=== PATIENT | female | born 1990 | race Caucasian/White ===

== ENCOUNTER 2024-10-27 15:26 | Inpatient (IN) | payer OTHER, SELFPAY ==
[2024-10-27] VITALS (66 sets, daily range): BP systolic 94–161; BP diastolic 51–99; PULSE 96–117; RESP 8–25; TEMP 36.8–37.9; O2SAT 86–100
--- NOTE | 2024-10-27 15:41 | ED.GENADUL_ITS ---
Discharge Plan Disposition Patient Disposition: Admit to [facility] Condition: Stable Discharge Details Clinical Impression: Emphysematous cystitis, Hyperglycemia, Hypomagnesemia, Sepsis Primary Care Provider: Unknown,Unknown ED Provider: Olivier Thompson Home Meds and New Rx's Prescriptions: No Action insulin lispro 100 unit/mL insulin pen 1 sliding scale dose subcut USEASDIRECTD insulin degludec [Tresiba FlexTouch U-100] 100 unit/mL (3 mL) insulin pen 40 unit subcut DAILY fluoxetine [Prozac] 40 mg capsule 40 mg PO DAILY levothyroxine [Synthroid] 125 mcg tablet 125 mcg PO DAILY hydrocortisone 10 mg tablet 15 mg PO .am hydrocortisone 5 mg tablet 5 mg PO .pm fludrocortisone 0.1 mg tablet 0.1 mg PO DAILY HPI General Date/Time Provider Initiated Documentation: 10/27/24 15:41 . HPI Narrative: 34 year-old female, t1DM, presents to ED today by EMS with a chief complaint of nausea/vomiting since 0800 this morning, stabbing umbilical pain, unable to keep fluids down- BGL reading high at-home took 10 units lispro subQ prior to arrival at 1500. Quality described as intractable nausea/vomiting, no radiation to overt fever, is sweating, denies shortness of breath, denies respiratory illness, denies altered mentation, endorses some diarrhea, denies chest pain, denies syncope. Severity is described as 8/10. Palliating factors include no antiemetics attempted. Provoking factors include nothing specific. Events leading up to the incident/Associated Symptoms: Patient has been in DKA prior, feels similar. Patient not anticoagulated. Related Data Home Medications ?Medication ?Instructions ?Recorded ?Confirmed fludrocortisone 0.1 mg tablet 0.1 mg PO DAILY 10/27/24 10/27/24 fluoxetine 40 mg capsule (Prozac) 40 mg PO DAILY 10/27/24 10/27/24 hydrocortisone 10 mg tablet 15 mg PO .am 10/27/24 10/27/24 hydrocortisone 5 mg tablet 5 mg PO .pm 10/27/24 10/27/24 insulin degludec 100 unit/mL (3 40 unit subcut DAILY 10/27/24 10/27/24 mL) subcutaneous pen (Tresiba FlexTouch U-100 insulin) insulin lispro 100 unit/mL 1 sliding scale dose subcut 10/27/24 10/27/24 subcutaneous pen USEASDIRECTD levothyroxine 125 mcg tablet 125 mcg PO DAILY 10/27/24 10/27/24 (Synthroid) Allergies Allergy/AdvReac Type Severity Reaction Status Date / Time shellfish derived Allergy Intermediate Skin Rash Verified 10/27/24 15:43 General Stated Complaint: Abd Prob ELAN: 3 Review of Systems All systems reviewed & are unremarkable except as noted in HPI and below Exam Narrative Exam Narrative: GENERAL APPEARANCE: Well-nourished, non-toxic, awake and alert, atraumatic, no acute distress. SKIN: Warm, pink, dry, intact, without rashes/lesions/ulcerations. HEAD: Normocephalic, atraumatic, normal hair distribution for gender/age. EYES: Normal conjunctiva, no exudates on lids/lashes. ENT: Nares patent, no circumoral cyanosis, no facial swelling NECK: Supple, trachea midline, painless cervical ROM. LUNGS/CHEST: Lungs CTA bilaterally- no rhonchi/rales/wheezes diffusely, non- labored respirations, normal A/P diameter, symmetrical expansion, no chest wall deformity HEART (CV/PV): Regular rate and rhythm without murmur, no peripheral edema, no JVD. ABDOMEN: Soft, non-distended, no guarding, sharp epigastric tenderness, RUQ tenderness, no McBurney's point tenderness, no CVA tenderness to percussion bilaterally. MSK: Normal ROM, no swelling/deformity to bilateral UEs or LEs, moving all extremities without weakness, no cyanosis, spine midline without tenderness, normal curvature. NEURO: Mental Status AAOx4 - alert to person, place, time, events No facial droop, no forehead involvement. Motor: No focal weakness - strength 5/5 in bilateral UEs and LEs, proximal and distal, symmetric. Sensory: sensation intact to light touch globally. Gait normal: patient ambulated without ataxia into ED room. PSYCH: euthymic, cooperative, pleasant, appropriate speech Course Vital Signs Vital signs: Vital Signs Temperature 37.4 C 10/27/24 15:33 Pulse 103 H 10/27/24 15:33 Respiratory Rate 25 H 10/27/24 15:33 Blood Pressure 137/90 10/27/24 15:33 Pulse Oximetry 100 10/27/24 15:33 Temperature 37.4 C 10/27/24 15:33 Pulse 103 H 10/27/24 15:33 Respiratory Rate 25 H 10/27/24 15:33 Blood Pressure 137/90 10/27/24 15:33 Blood Pressure Position Supine 10/27/24 15:33 Pulse Oximetry 100 10/27/24 15:33 Oxygen Delivery Method Room Air 10/27/24 15:33 Oxygen Flow Rate 0 10/27/24 15:33 Pain Level 8 10/27/24 15:33 Medical Decision Making This dictation utilizes [id number] dictation software and may contain unedited grammatical errors. 34 year-old female, t1DM, presents to ED today by EMS with a chief complaint of nausea/vomiting since 0800 this morning, stabbing umbilical pain, unable to keep fluids down- BGL reading high at-home took 10 units lispro subQ prior to arrival at 1500. Quality described as intractable nausea/vomiting, no radiation to overt fever, is sweating, denies shortness of breath, denies respiratory illness, denies altered mentation, endorses some diarrhea, denies chest pain, denies syncope. Severity is described as 8/10. Palliating factors include no antiemetics attempted. Provoking factors include nothing specific. Events leading up to the incident/Associated Symptoms: Patient has been in DKA prior, feels similar. Patients' medical history: Gunnison's disease, type 1 diabetes, hypothyroidism, depression, irritable bowel syndrome. Family and social history: lives at home, no recent travel sick. Pertinent exam findings / vital signs include epigastric tenderness, lungs CTA, tachycardic, afebrile, appears toxic. Differential / pathologies of concern include diabetic ketoacidosis, gastroenteritis, biliary tree pathology, UTI, pneumonia, SBO, gastritis, sepsis, electrolyte abnormality, addisonian crisis. Diagnostic studies of: -CBC, CMP, VBG, magnesium, lipase, UA, urine culture, lactate, CT ABD/pelvis with contrast, XR chest, EKG. -CBC shows leukocytosis of 11.6 -Initial lactate 3.7, repeat 1.6 -VBG has a pH of 7.41 with low pCO2-likely metabolic alkalosis with low bicarb and total CO2 -CMP shows an anion gap of 20.2, creatinine of 1.2, glucose of 387, low magnesium at 1.5, mildly elevated bilirubin at 1.89, elevated alk phos at 231, repeat BMP shows a glucose of 74 and was given an amp of D50, gap is closed -Lipase negative -UA shows ketonuria and glucose spilling -CT shows air in the bladder, likely emphysematous cystitis in the setting of chronic diabetes, high risk infection -XR chest shows no pneumonia -EKG shows sinus tachycardia with a rate at 101, normal intervals, P waves followed by narrow complex QRS, left axis deviation, mild ST depressions in V45 and 6 without reciprocal changes, no T wave inversions, normal Q TC Interventions of: -2L NS IVF, 1gm IV ceftriaxone for emphysematous cystitis, 100mg hydrocortisone for elias's empiric treatment, given IV reglan & benadryl for nausea/vomiting in the setting of chronic gastroparesis, given magnesium 2gm IV for hypo-mag, Given 1amp D50 for repeat glucose of 74. ED Course/Assessment/Plan: 34-year-old toxic appearing female presents with many episodes of vomiting today, reports some diarrhea, reports severe abdominal pain and feels like she is in DKA with her blood glucose reading high at home, she gave herself 10 units of subcu lispro prior to arrival, glucose on arrival is 387. I did provide IV fluids to dilute the patient, she did have an initial anion gap of 20 without acidosis on VBG, she has leukocytosis with air in the bladder without catheterization suspicious for high risk emphysematous cystitis, she had persistent elevated lactate on repeat and was admitted for sepsis with emphysematous cystitis, I did normalize her anion gap with IV fluids, her glucose to go down to 74 but was given an amp of D50, she had mildly low magnesium that was repleted, I consulted with Dr. Landry who accepted the patient for admission around 2029, patient had already received IV ceftriaxone for empiric UTI coverage. Disposition of Emphysematous cystitis, sepsis, hyperglycemia, hypomagnesemia. Patient verbalized understanding of the plan and return to ED criteria and engaged in shared decision making. Medical Records Medical records reviewed: Yes I reviewed the patient's medical records. Imaging Data Radiologic Study: Attestation: I personally reviewed and interpreted this imaging study as follows: Imaging: CT Scan Radiologist's impression: EXAM: CT ABDOMEN PELVIS W CLINICAL HISTORY: epigastric/RUQ/LUQ tenderness intractable vomit. TECHNIQUE: Imaging Protocol: Axial computed tomography images with coronal and sagittal reformatted images were created and reviewed CONTRAST MATERIAL: Intravenous: Omnipaque 350 Contrast volume:70 ml Oral: no COMPARISON: No exams were available for comparison FINDINGS: ABDOMEN and PELVIS: Lung Bases: No acute findings. Liver: Normal density. No suspicious mass. Gallbladder and biliary tract: No radiodense calculus. No wall thickening or pericholecystic fluid. No biliary dilation. Pancreas: Normal density. No abnormal calcifications or inflammatory process. No evidence of mass. Spleen: Normal. Kidneys: Normal size, contour and axis. No radiodense stones. No obstructive uropathy. No suspicious masses seen. Adrenal glands: No masses seen. Vasculature: Abdominal aorta non-dilated. Soft tissues: Unremarkable. Bladder: Air in urinary bladder. Screw secondary to catheterization. Clinical correlation recommended. No gross wall thickening. No calculi.No focal mass. Bowel: The stomach is unremarkable. No small-bowel obstruction. No bowel wall thickening. Appendix normal. Normal quantity of stool. Peritoneal cavity: No ascites. No focal collection. No mesenteric inflammatory response. No free air. Bones: Unremarkable for age. Reproductive organs: Unremarkable. Lymph nodes: No pathologically enlarged lymph nodes. IMPRESSION:: No acute abnormality in the abdomen or pelvis. Air in urinary bladder which may be secondary to recent catheterization. No bladder wall thickening or stones. The gallbladder and appendix appear normal. Radiologic Study #2: Attestation: I personally reviewed and interpreted this imaging study as follows: Imaging: X-Ray Radiologist's impression: Exam: XR Chest Exam date and time: 10/27/2024 7:04 PM Age: 34 years old Clinical indication: Patient HX: Laceration on hand between thumb and first digit TECHNIQUE: Imaging protocol: Radiologic exam of the chest. Views: 2 views. COMPARISON: CT ABDOMEN PELVIS W 10/27/2024 5:33 PM FINDINGS: Lungs: Unremarkable. No consolidation. Pleural spaces: Unremarkable. No pleural effusion. No pneumothorax. Heart/Mediastinum: Unremarkable. No cardiomegaly. Bones/joints: Unremarkable. IMPRESSION: No evidence for acute abnormality in the chest. Dictated and Authenticated by: Jessica Dawson MD. Lab Data Lab results reviewed: Yes I reviewed the patient's lab results. Labs: 10/27/24 17:52 Urine - Reflex from Ua Urine Culture - Pending Laboratory Tests Range/Units 10/27/24 10/27/24 10/27/24 16:06 17:52 18:55 WBC (4.4-10.8) 10^3/uL 11.67 H RBC (3.93-5.22) 10^6/uL 5.68 H Hgb (11.2-15.7) g/dL 14.2 Hct (36.0-46.0) % 43.9 MCV (80-95) fL 77 L MCH (27.0-33.0) pg 25.0 L MCHC (32.0-36.0) % 32.3 RDW (11.7-14.6) % 13.7 Plt Count (130-400) 10^3/uL 267 MPV (8.0-11.0) fL 11.2 H Immature Gran % % 0.3 Neutrophils % % 63.1 Lymphocytes % % 22.2 Monocytes % % 6.1 Eosinophils % % 7.4 Basophils % % 0.9 Nucleated RBC % (0.0-0.3) % 0.0 Absolute Neutrophils (1.2-6.7) 10^3/uL 7.36 H Absolute Lymphocytes (1.2-3.4) 10^3/uL 2.59 Absolute Monocytes (0.1-0.8) 10^3/uL 0.71 Absolute Eosinophils (0.0-0.7) 10^3/uL 0.86 H Absolute Basophils (0.0-0.2) 10^3/uL 0.11 VBG pH (7.31-7.41) 7.41 VBG pCO2 (41-51) mmHg 30 L VBG pO2 mmHg 31 VBG HCO3 (23-28) mmol/L 19 L VBG Total CO2 (24-29) mmol/L 17 L VBG O2 Saturation % 59 VBG Base Excess (-2-3) mmol/L -6 L VBG Lactate (0.6-1.4) mmol/L 3.7 H* Sodium (136-145) mmol/L 136 140 Potassium (3.5-5.1) mmol/L 3.9 3.8 Chloride (98-107) mmol/L 97 L 104 Carbon Dioxide (21.0-32.0) mmol/L 18.8 L 25.6 Anion Gap (3-11) mmol/L 20.2 H 10.4 BUN (7-18) mg/dL 8 7 Creatinine (0.55-1.02) mg/dL 1.2 H 1.0 Est GFR (CKD-EPI 2020) (mL/min/1.73m2) 61.30 76.29 Glucose (74-106) mg/dL 387 H 74 Calcium (8.5-10.1) mg/dL 9.4 9.2 Magnesium (1.8-2.4) mg/dL 1.5 L Total Bilirubin (0.2-1.0) mg/dL 1.89 H AST (15-37) U/L 25 ALT (14-59) U/L 33 Alkaline Phosphatase (46-116) U/L 231 H Total Protein (6.4-8.2) g/dL 7.7 Albumin (3.4-5.0) g/dL 3.4 Lipase (<78) U/L 9 Urine Color (Yellow) Yellow Urine Clarity (Clear) Clear Urine pH (5-8) 6.0 Ur Specific Compton (1.005-1.025) 1.010 Urine Protein (Neg-Trace) mg/dL Negative Urine Ketones (Negative) mg/dL 80 H Urine Blood (Negative) Small H Urine Nitrite (Negative) Negative Urine Bilirubin (Negative) Small H Urine Urobilinogen (Up to 0.2) mg/dL 0.2 Ur Leukocyte Esterase (Negative) Moderate H Urine RBC (0-2) HPF 3-5 H Urine WBC (0-5) HPF >50 H Ur Epithelial Cells (Negative) HPF Few Urine Crystals (Negative) HPF Negative Urine Bacteria (Negative) HPF Few Urine Casts (Negative) LPF Negative Urine Mucus (Negative) Negative Urine Other (Negative) Rare Transitional Ur Culture Indicated? Yes Urine Glucose (Negative) mg/dL 500 H Range/Units 10/27/24 20:20 WBC (4.4-10.8) 10^3/uL RBC (3.93-5.22) 10^6/uL Hgb (11.2-15.7) g/dL Hct (36.0-46.0) % MCV (80-95) fL MCH (27.0-33.0) pg MCHC (32.0-36.0) % RDW (11.7-14.6) % Plt Count (130-400) 10^3/uL MPV (8.0-11.0) fL Immature Gran % % Neutrophils % % Lymphocytes % % Monocytes % % Eosinophils % % Basophils % % Nucleated RBC % (0.0-0.3) % Absolute Neutrophils (1.2-6.7) 10^3/uL Absolute Lymphocytes (1.2-3.4) 10^3/uL Absolute Monocytes (0.1-0.8) 10^3/uL Absolute Eosinophils (0.0-0.7) 10^3/uL Absolute Basophils (0.0-0.2) 10^3/uL VBG pH (7.31-7.41) VBG pCO2 (41-51) mmHg VBG pO2 mmHg VBG HCO3 (23-28) mmol/L VBG Total CO2 (24-29) mmol/L VBG O2 Saturation % VBG Base Excess (-2-3) mmol/L VBG Lactate (0.6-1.4) mmol/L 1.6 H Sodium (136-145) mmol/L Potassium (3.5-5.1) mmol/L Chloride (98-107) mmol/L Carbon Dioxide (21.0-32.0) mmol/L Anion Gap (3-11) mmol/L BUN (7-18) mg/dL Creatinine (0.55-1.02) mg/dL Est GFR (CKD-EPI 2020) (mL/min/1.73m2) Glucose (74-106) mg/dL Calcium (8.5-10.1) mg/dL Magnesium (1.8-2.4) mg/dL Total Bilirubin (0.2-1.0) mg/dL AST (15-37) U/L ALT (14-59) U/L Alkaline Phosphatase (46-116) U/L Total Protein (6.4-8.2) g/dL Albumin (3.4-5.0) g/dL Lipase (<78) U/L Urine Color (Yellow) Urine Clarity (Clear) Urine pH (5-8) Ur Specific Compton (1.005-1.025) Urine Protein (Neg-Trace) mg/dL Urine Ketones (Negative) mg/dL Urine Blood (Negative) Urine Nitrite (Negative) Urine Bilirubin (Negative) Urine Urobilinogen (Up to 0.2) mg/dL Ur Leukocyte Esterase (Negative) Urine RBC (0-2) HPF Urine WBC (0-5) HPF Ur Epithelial Cells (Negative) HPF Urine Crystals (Negative) HPF Urine Bacteria (Negative) HPF Urine Casts (Negative) LPF Urine Mucus (Negative) Urine Other (Negative) Ur Culture Indicated? Urine Glucose (Negative) mg/dL Quality:SDOH Health Related Social Needs: No Data to Display PFSH All Active Problems (Updated 10/27/24 @ 21:03 by BRENDEN Streeter) Sepsis (Acute) UTI (urinary tract infection) (Acute) Hypomagnesemia (Acute) Hyperglycemia (Acute) Emphysematous cystitis (Acute) Social History Smoking/Tobacco Use Status: Never Smoking risk assessment performed?: Yes Alcohol Intake: never Drug use: Never Housing: house
--- NOTE | 2024-10-27 15:45 | RT.EKG_ITS ---
APPROVED REPORT Exam: Resting ECG Reason for Exam: vomiting, t2DM Patient Location: E HR:101 bpm ECG Measurements Heart Rate 101 AXIS AL 133 P 47 QRSd 94 QRS -52 QT 431 T 35 QTc 558 Conclusion Sinus tachycardia. 101 normal axis no stemi long QTC 558
[2024-10-27 16:11] LABS: Abs Immature Grans 0.04 10^3/uL (0.0-0.06); Absolute Eosinophil Count 0.86 10^3/uL (0.0-0.7); Absolute Lymphocyte Count 2.59 10^3/uL (1.2-3.4); Absolute Monocyte Count 0.71 10^3/uL (0.1-0.8); BE (Venous) -6 mmol/L (-2-3); Basophils % 0.9 %; Eosinophils % 7.4 %; HCO3 (Venous) 19 mmol/L (23-28); HCT 43.9 % (36.0-46.0); HGB 14.2 g/dL (11.2-15.7); Immature Grans % 0.3 %; Lymphocytes % 22.2 %; MCHC 32.3 % (32.0-36.0); MCV 77 fL (80-95); MPV 11.2 fL (8.0-11.0); Monocytes % 6.1 %; Neutrophils % 63.1 %; O2 Sat (Venous) 59 %; Platelet Count 267 10^3/uL (130-400); RBC 5.68 10^6/uL (3.93-5.22); RDW 13.7 % (11.7-14.6); RDW-SD 38.3 fL; TCO2 (Venous) 17 mmol/L (24-29); WBC 11.67 10^3/uL (4.4-10.8); pCO2 (Venous) 30 mmHg (41-51); pH (Venous) 7.41 (7.31-7.41); pO2 (Venous) 31 mmHg
[2024-10-27 16:12] LABS: Lactate 3.7 mmol/L (0.6-1.4)
[2024-10-27 16:13] LABS: Absolute Basophil Count 0.11 10^3/uL (0.0-0.2); Absolute Neutrophil Count 7.36 10^3/uL (1.2-6.7)
[2024-10-27] MEDS: Normal Saline 1,000 ML 1000 ML IV ×2 (16:15→18:53)
[2024-10-27] MEDS: diphenhydrAMINE 50 MG/ML VIAL 25 MG IVP (16:16)
[2024-10-27] MEDS: Metoclopramide 10 MG/2 ML VIAL IVP (16:18)
[2024-10-27 16:38] LABS: ALT 33 U/L (14-59); AST 25 U/L (15-37); Albumin 3.4 g/dL (3.4-5.0); Alkaline Phosphatase 231 U/L (46-116); Anion Gap 20.2 mmol/L (3-11); BUN 8 mg/dL (7-18); Bilirubin, Total 1.89 mg/dL (0.2-1.0); CO2 18.8 mmol/L (21.0-32.0); CREATININE 1.2 mg/dL (0.55-1.02); Calcium 9.4 mg/dL (8.5-10.1); Chloride 97 mmol/L (98-107); Glucose 387 mg/dL (74-106); Lipase 9 U/L (<78); Magnesium 1.5 mg/dL (1.8-2.4); Potassium 3.9 mmol/L (3.5-5.1); Sodium 136 mmol/L (136-145); Total Protein 7.7 g/dL (6.4-8.2)
[2024-10-27] MEDS: Normal Saline - Diluent 50 ML VIAL IJ (17:36)
[2024-10-27] MEDS: Omnipaque 350 MG/ML 100 ML BTL 75 ML IJ (17:42)
--- NOTE | 2024-10-27 17:43 | DI.CT_ITS ---
Exam(s) CT ABDOMEN PELVIS W EXAM: CT ABDOMEN PELVIS W CLINICAL HISTORY: epigastric/RUQ/LUQ tenderness intractable vomit. TECHNIQUE: Imaging Protocol: Axial computed tomography images with coronal and sagittal reformatted images were created and reviewed CONTRAST MATERIAL: Intravenous: Omnipaque 350 Contrast volume:70 ml Oral: no COMPARISON: No exams were available for comparison FINDINGS: ABDOMEN and PELVIS: Lung Bases: No acute findings. Liver: Normal density. No suspicious mass. Gallbladder and biliary tract: No radiodense calculus. No wall thickening or pericholecystic fluid. No biliary dilation. Pancreas: Normal density. No abnormal calcifications or inflammatory process. No evidence of mass. Spleen: Normal. Kidneys: Normal size, contour and axis. No radiodense stones. No obstructive uropathy. No suspicious masses seen. Adrenal glands: No masses seen. Vasculature: Abdominal aorta non-dilated. Soft tissues: Unremarkable. Bladder: Air in urinary bladder. Screw secondary to catheterization. Clinical correlation recommend ed. No gross wall thickening. No calculi.No focal mass. Bowel: The stomach is unremarkable. No small-bowel obstruction. No bowel wall thickening. Appendix normal. Normal quantity of stool. Peritoneal cavity: No ascites. No focal collection. No mesenteric inflammatory response. No free air . Bones: Unremarkable for age. Reproductive organs: Unremarkable. Lymph nodes: No pathologically enlarged lymph nodes. IMPRESSION:: No acute abnormality in the abdomen or pelvis. Air in urinary bladder which may be secondary to recent catheterization. No bladder wall thickening or stones. The gallbladder and appendix appear normal. RADIATION DOSE DELIVERED: Total DLP DATA REPOSITORY: All CT scans at this facility are submitted to the National Radiology Data Registry (NRDR) Dose Index Registry (DIR) with the [employer] (A[employer]). RADIATION OPTIMIZATION: All CT scans at this facility use at least one of these dose optimization te chniques: automated exposure control; mA and/or kV adjustment per patient size (includes targeted exa ms where dose is matched to clinical indication); or iterative reconstruction.
[2024-10-27] MEDS: MAGNESIUM SULFATE 2 GM/50 ML BAG IV_INF (17:59)
--- NOTE | 2024-10-27 18:00 | DI.RAD_ITS ---
Exam(s) XR CHEST 2V PA LATERAL EXAM: XR CHEST 2V PA LATERAL CLINICAL HISTORY: cough, upper ABD pain. TECHNIQUE: 2D digital imaging was performed. COMPARISON: No exams were available for comparison FINDINGS: 2 views: Heart size is normal. The mediastinum is not widened. Lungs are clear. No infiltrates nor pleural effusions. IMPRESSION: No acute pulmonary findings. DATA REPOSITORY: RADIATION DOSE DELIVERED:
[2024-10-27 18:02] LABS: Bilirubin Small (Negative); Blood Small (Negative); Clarity Clear (Clear); Glucose 500 mg/dL (Negative); Ketones 80 mg/dL (Negative); Leukocyte Esterase Moderate (Negative); Nitrite Negative (Negative); Urobilinogen 0.2 mg/dL (Up to 0.2)
[2024-10-27 18:17] LABS: Bacteria Few HPF (Negative); C & S Indicated? Yes; Casts Negative LPF (Negative); Crystals Negative HPF (Negative); Epithelial Cells Few HPF (Negative); Mucus Negative (Negative); Other Cells Rare Transitional (Negative); WBC >50 HPF (0-5)
[2024-10-27] MEDS: Dextrose 50%-Water 25 GM/50 ML SYR IVP (19:14)
[2024-10-27 19:15] LABS: Anion Gap 10.4 mmol/L (3-11); BUN 7 mg/dL (7-18); CO2 25.6 mmol/L (21.0-32.0); Calcium 9.2 mg/dL (8.5-10.1); Chloride 104 mmol/L (98-107); Estimated GFR 76.29 (mL/min/1.73m2); Glucose 74 mg/dL (74-106); Potassium 3.8 mmol/L (3.5-5.1); Sodium 140 mmol/L (136-145)
[2024-10-27] MEDS: cefTRIAXone 1 GM/50 ML BAG IVPB (19:16)
--- NOTE | 2024-10-27 20:07 | DI.VRAD_ITS ---
PROCEDURE INFORMATION: Exam: XR Chest Exam date and time: 10/27/2024 7:04 PM Age: 34 years old Clinical indication: Patient HX: Laceration on hand between thumb and first digit TECHNIQUE: Imaging protocol: Radiologic exam of the chest. Views: 2 views. COMPARISON: CT ABDOMEN PELVIS W 10/27/2024 5:33 PM FINDINGS: Lungs: Unremarkable. No consolidation. Pleural spaces: Unremarkable. No pleural effusion. No pneumothorax. Heart/Mediastinum: Unremarkable. No cardiomegaly. Bones/joints: Unremarkable. IMPRESSION: No evidence for acute abnormality in the chest. Dictated and Authenticated by: Jessica Dawson MD. Ordering:MONICA Aguayo MD
[2024-10-27] MEDS: Hydrocortisone SOD SUC. 100 MG VIAL IVP (20:17)
--- NOTE | 2024-10-27 20:19 | HPE_ITS ---
Date of service: 10/27/24 Time of Service: 20:19 Assessment and Plan Assessment and plan (1) UTI (urinary tract infection): Status: Acute Assessment and plan: UTI (the air in bladder may represent emphysematous cystitis). The initial presentation suggested possible impending DKA but the rapid normalization of parameters indicates otherwise, or at least that this has been averted. Unclear what the initial lactic acidosis may have represented but this too has resolved. In the meantime the presentation (vomiting) may be simply a non-specific manifestation of UTI, though adrenal insufficiency may have likewise been playing a role. Will continue antibiotics, await urine culture, continue stress dose steroids and continue basal insulin (at 2/3 dose until PO stabilizes) along with SS coverage. 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 No abd pain, single small episode of diarrhea. No similar illness at home. Took her usual 40 unit long acting insulin this morning. En route to ER noted a high reading and took additional 10 units of Lispro. In ER initial findings of note for white count 11, 387, HCO3 18, AG 20, lactate 3.7, ketonuria and glucose 387; Mg 1.5. Given 2 L IVF and repeat labs show sugar 74 (given D50), lactate 1.6, HCO3 25, AG 10. Urinalysis shows >50 WBC/hpf and CT generally unremarkbale save for air in bladder (NB: not a cath urine). Patient given Reglan, benadryl, 100 mg Hydrocortisone and 1 gram Rocephin. I was asked to evaluate for admission. Patient states she is feeling noticeably better. Denies urinary frequency or dysuria, and no back pain. Review of Systems Narrative: per HPI PFSH All Active Problems (Updated 10/27/24 @ 20:37 by Michael Landry MD) UTI (urinary tract infection) (Acute) Hypomagnesemia (Acute) Lactic acidosis (Acute) Hyperglycemia (Acute) Emphysematous cystitis (Acute) Social History Smoking/Tobacco Use Status: Never Smoking risk assessment performed?: Yes Alcohol Intake: never Drug use: Never Housing: house Meds Allergies and Home Medications Allergies Allergy/AdvReac Type Severity Reaction Status Date / Time shellfish derived Allergy Intermediate Skin Rash Verified 10/27/24 15:43 Home Medications ?Medication ?Instructions ?Recorded ?Confirmed ?Type fludrocortisone 0.1 mg tablet 0.1 mg PO DAILY 10/27/24 10/27/24 History fluoxetine 40 mg capsule (Prozac) 40 mg PO DAILY 10/27/24 10/27/24 History hydrocortisone 10 mg tablet 15 mg PO .am 10/27/24 10/27/24 History hydrocortisone 5 mg tablet 5 mg PO .pm 10/27/24 10/27/24 History insulin degludec 100 unit/mL (3 40 unit subcut DAILY 10/27/24 10/27/24 History mL) subcutaneous pen (Tresiba FlexTouch U-100 insulin) insulin lispro 100 unit/mL 1 sliding scale dose subcut 10/27/24 10/27/24 History subcutaneous pen USEASDIRECTD levothyroxine 125 mcg tablet 125 mcg PO DAILY 10/27/24 10/27/24 History (Synthroid) Exam Narrative Exam Narrative: 122/75, 101, 37.4, 15, 99% RA. HEENT atraumatic; neck supple; lungs clear; heart RRR; abdomen soft and NT; extremities w/o edema; neuro Ox3, lucid, moves all4s Results Labs 10/27/24 16:06 10/27/24 18:55 Labs: Laboratory Results - last 24 hr 10/27/24 10/27/24 10/27/24 16:06 17:52 18:55 WBC 11.67 H RBC 5.68 H Hgb 14.2 Hct 43.9 MCV 77 L MCH 25.0 L MCHC 32.3 RDW 13.7 Plt Count 267 MPV 11.2 H Immature Gran % 0.3 Neutrophils % 63.1 Lymphocytes % 22.2 Monocytes % 6.1 Eosinophils % 7.4 Basophils % 0.9 Nucleated RBC % 0.0 Absolute Neutrophils 7.36 H Absolute Lymphocytes 2.59 Absolute Monocytes 0.71 Absolute Eosinophils 0.86 H Absolute Basophils 0.11 VBG pH 7.41 VBG pCO2 30 L VBG pO2 31 VBG HCO3 19 L VBG Total CO2 17 L VBG O2 Saturation 59 VBG Base Excess -6 L VBG Lactate 3.7 H* Sodium 136 140 Potassium 3.9 3.8 Chloride 97 L 104 Carbon Dioxide 18.8 L 25.6 Anion Gap 20.2 H 10.4 BUN 8 7 Creatinine 1.2 H 1.0 Est GFR (CKD-EPI 2020) 61.30 76.29 Glucose 387 H 74 Calcium 9.4 9.2 Magnesium 1.5 L Total Bilirubin 1.89 H AST 25 ALT 33 Alkaline Phosphatase 231 H Total Protein 7.7 Albumin 3.4 Lipase 9 Urine Color Yellow Urine Clarity Clear Urine pH 6.0 Ur Specific [place] 1.010 Urine Protein Negative Urine Ketones 80 H Urine Blood Small H Urine Nitrite Negative Urine Bilirubin Small H Urine Urobilinogen 0.2 Ur Leukocyte Esterase Moderate H Urine RBC 3-5 H Urine WBC >50 H Ur Epithelial Cells Few Urine Crystals Negative Urine Bacteria Few Urine Casts Negative Urine Mucus Negative Urine Other Rare Transitional Ur Culture Indicated? Yes Urine Glucose 500 H Last Vital Signs Temp 37.4 C 10/27/24 15:33 Pulse 101 H 10/27/24 20:15 Resp 15 10/27/24 20:15 BP 122/75 10/27/24 20:15 Pulse Ox 99 10/27/24 20:10 Time Spent Time spent with Patient: 55-74 minutes Time was spent: preparing to see the patient(eg.review tests), obtaining and/or reviewing separately otained hiistory, ordering medications,tests, procedures, referring, communicating with other health wound care specialist and indepentently interpreting results
[2024-10-27 20:22] LABS: Lactate 1.6 mmol/L (0.6-1.4)
--- NOTE | 2024-10-27 22:24 | W.PC.ACHO ---
Registration Status: Primary Language: Preferred Language: ED Information & Data Chief Complaint Abd Prob 10/27/24 15:41 Other Complaint Diabetes 10/27/24 15:33 Triage Note Pt has addisons and T1DM. 10/27/24 15:33 Has been vomiting since 0800 tis morning, some diarrhea. Unable to keep fluids down. BGL read high this morning. 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 Has not eaten, current BGL 385. Complains of umbilical pain, 8/10 stabbing. Most Recent Vital Signs Temperature 37.4 C 10/27/24 15:33 Pulse 101 H 10/27/24 20:15 Pulse 109 H 10/27/24 20:15 Respiratory Rate 15 10/27/24 20:15 Blood Pressure 122/75 10/27/24 20:15 Blood Pressure Mean 89 10/27/24 20:15 Blood Pressure Position Supine 10/27/24 15:33 Pulse Oximetry 99 10/27/24 20:10 Oxygen Delivery Method Room Air 10/27/24 15:33 Oxygen Flow Rate 0 10/27/24 15:33 Pain Level 8 10/27/24 15:40 Allergies shellfish derived Allergy (Intermediate, Verified 10/27/24 15:43) Skin Rash Active Medications Generic Name Dose Route Start Last Admin Trade Name Freq PRN Reason Stop Dose Admin Iohexol 75 ml 10/27/24 17:45 10/27/24 17:42 Omnipaque 350 Mg/Ml 100 Ml Btl IJ 11/26/24 23:59 75 ml DIRECTED DEE Administration Sodium Chloride 50 ml 10/27/24 17:45 10/27/24 17:36 Normal Saline - Diluent 50 Ml Vial IJ 50 ml .FOR DI USE DEE Administration IV IV Catheter Type [Left Peripheral IV Antecubital] IV Catheter Gauge [Left 18 Antecubital] Diet Orders Category Date Time Status Diabetes Consistent CHO [DIET] Nutrition 10/28/24 Breakfast Ordered Diagnostics 10/27/24 10/27/24 10/27/24 Range/Units 20:20 18:55 17:52 WBC (4.4-10.8) 10^3/uL RBC (3.93-5.22) 10^6/uL Hgb (11.2-15.7) g/dL Hct (36.0-46.0) % MCV (80-95) fL MCH (27.0-33.0) pg MCHC (32.0-36.0) % RDW (11.7-14.6) % Plt Count (130-400) 10^3/uL MPV (8.0-11.0) fL Immature Gran % % Neutrophils % % Lymphocytes % % Monocytes % % Eosinophils % % Basophils % % Nucleated RBC % (0.0-0.3) % Absolute Neutrophils (1.2-6.7) 10^3/uL Absolute Lymphocytes (1.2-3.4) 10^3/uL Absolute Monocytes (0.1-0.8) 10^3/uL Absolute Eosinophils (0.0-0.7) 10^3/uL Absolute Basophils (0.0-0.2) 10^3/uL VBG pH (7.31-7.41) VBG pCO2 (41-51) mmHg VBG pO2 mmHg VBG HCO3 (23-28) mmol/L VBG Total CO2 (24-29) mmol/L VBG O2 Saturation % VBG Base Excess (-2-3) mmol/L VBG Lactate 1.6 H (0.6-1.4) mmol/L Sodium 140 (136-145) mmol/L Potassium 3.8 (3.5-5.1) mmol/L Chloride 104 (98-107) mmol/L Carbon Dioxide 25.6 (21.0-32.0) mmol/L Anion Gap 10.4 (3-11) mmol/L BUN 7 (7-18) mg/dL Creatinine 1.0 (0.55-1.02) mg/dL Est GFR (CKD-EPI 2020) 76.29 (mL/min/1.73m2) Glucose 74 (74-106) mg/dL Calcium 9.2 (8.5-10.1) mg/dL Magnesium (1.8-2.4) mg/dL Total Bilirubin (0.2-1.0) mg/dL AST (15-37) U/L ALT (14-59) U/L Alkaline Phosphatase (46-116) U/L Total Protein (6.4-8.2) g/dL Albumin (3.4-5.0) g/dL Lipase (<78) U/L Cortisol Urine Color Yellow (Yellow) Urine Clarity Clear (Clear) Urine pH 6.0 (5-8) Ur Specific [place] 1.010 (1.005-1.025) Urine Protein Negative (Neg-Trace) mg/dL Urine Ketones 80 H (Negative) mg/dL Urine Blood Small H (Negative) Urine Nitrite Negative (Negative) Urine Bilirubin Small H (Negative) Urine Urobilinogen 0.2 (Up to 0.2) mg/dL Ur Leukocyte Esterase Moderate H (Negative) Urine RBC 3-5 H (0-2) HPF Urine WBC >50 H (0-5) HPF Ur Epithelial Cells Few (Negative) HPF Urine Crystals Negative (Negative) HPF Urine Bacteria Few (Negative) HPF Urine Casts Negative (Negative) LPF Urine Mucus Negative (Negative) Urine Other Rare Transitional (Negative) Ur Culture Indicated? Yes Urine Glucose 500 H (Negative) mg/dL 10/27/24 Range/Units 16:06 WBC 11.67 H (4.4-10.8) 10^3/uL RBC 5.68 H (3.93-5.22) 10^6/uL Hgb 14.2 (11.2-15.7) g/dL Hct 43.9 (36.0-46.0) % MCV 77 L (80-95) fL MCH 25.0 L (27.0-33.0) pg MCHC 32.3 (32.0-36.0) % RDW 13.7 (11.7-14.6) % Plt Count 267 (130-400) 10^3/uL MPV 11.2 H (8.0-11.0) fL Immature Gran % 0.3 % Neutrophils % 63.1 % Lymphocytes % 22.2 % Monocytes % 6.1 % Eosinophils % 7.4 % Basophils % 0.9 % Nucleated RBC % 0.0 (0.0-0.3) % Absolute Neutrophils 7.36 H (1.2-6.7) 10^3/uL Absolute Lymphocytes 2.59 (1.2-3.4) 10^3/uL Absolute Monocytes 0.71 (0.1-0.8) 10^3/uL Absolute Eosinophils 0.86 H (0.0-0.7) 10^3/uL Absolute Basophils 0.11 (0.0-0.2) 10^3/uL VBG pH 7.41 (7.31-7.41) VBG pCO2 30 L (41-51) mmHg VBG pO2 31 mmHg VBG HCO3 19 L (23-28) mmol/L VBG Total CO2 17 L (24-29) mmol/L VBG O2 Saturation 59 % VBG Base Excess -6 L (-2-3) mmol/L VBG Lactate 3.7 H* (0.6-1.4) mmol/L Sodium 136 (136-145) mmol/L Potassium 3.9 (3.5-5.1) mmol/L Chloride 97 L (98-107) mmol/L Carbon Dioxide 18.8 L (21.0-32.0) mmol/L Anion Gap 20.2 H (3-11) mmol/L BUN 8 (7-18) mg/dL Creatinine 1.2 H (0.55-1.02) mg/dL Est GFR (CKD-EPI 2020) 61.30 (mL/min/1.73m2) Glucose 387 H (74-106) mg/dL Calcium 9.4 (8.5-10.1) mg/dL Magnesium 1.5 L (1.8-2.4) mg/dL Total Bilirubin 1.89 H (0.2-1.0) mg/dL AST 25 (15-37) U/L ALT 33 (14-59) U/L Alkaline Phosphatase 231 H (46-116) U/L Total Protein 7.7 (6.4-8.2) g/dL Albumin 3.4 (3.4-5.0) g/dL Lipase 9 (<78) U/L Cortisol Pending Urine Color (Yellow) Urine Clarity (Clear) Urine pH (5-8) Ur Specific [place] (1.005-1.025) Urine Protein (Neg-Trace) mg/dL Urine Ketones (Negative) mg/dL Urine Blood (Negative) Urine Nitrite (Negative) Urine Bilirubin (Negative) Urine Urobilinogen (Up to 0.2) mg/dL Ur Leukocyte Esterase (Negative) Urine RBC (0-2) HPF Urine WBC (0-5) HPF Ur Epithelial Cells (Negative) HPF Urine Crystals (Negative) HPF Urine Bacteria (Negative) HPF Urine Casts (Negative) LPF Urine Mucus (Negative) Urine Other (Negative) Ur Culture Indicated? Urine Glucose (Negative) mg/dL 10/27/24 17:52 Urine Culture - Pending Urine - Reflex from [id number] Documentation Fingerstick Glucose Start: 10/27/24 15:33 Freq: Status: Complete Protocol: Activity Type Activity Date Activity User E-sign Co-sign Detail Recorded Client Recorded Date Recorded By Document 10/27/24 20:24 BKG DAEMON(5) NVT-BG05 10/27/24 20:25 BKG DAEMON(6) Fingerstick Glucose Start: 10/27/24 20:49 Freq: .AC Status: Active Protocol: Activity Type Activity Date Activity User E-sign Co-sign Detail Recorded Client Recorded Date Recorded By Document 10/27/24 22:15 BKG DAEMON(7) NVT-BG05 10/27/24 22:16 BKG DAEMON(8) Intake and Output - 24 Hour Total 10/27/24 15:26 thru 10/27/24 20:14 Intake Total 2100 Balance 2100 Weight 68.039 kg Intake: IV 2100 Falls Risk Assessment History of Falls No History 10/27/24 15:42 Contributing Factors Confusion 10/27/24 15:42 Ambulatory Aids Independent 10/27/24 15:42 Tubes/Lines None 10/27/24 15:42 Cognition No cognitive impairment 10/27/24 15:42 Fall Total Score 3 10/27/24 15:42 Level of Risk Standard/Low Risk 10/27/24 15:42 Problems (Last Reviewed 10/27/24 @ 20:35 by Michael Landry MD) UTI (urinary tract infection) (Acute) v v v v v v v v v Sending and/or Receiving Nurses: Please use comment section below to note any information pertinent to the patient hand-off not included above. Information / Comments: abdomen pain and vomit start at 0800 today, blood glucose high at home, pt took additional lispro and felt worse-coming to ER. postitive for UTI. Blood sugar 70 in ER, 1 amp D50 given. 1 gram ceftriaxone, solucortif, reglan, zofran, magnesium given in ER. 2 L NS given. current blood sugar 118. #18 LAC. Report received from: [facility] @ [id number]
[2024-10-27] MEDS: Normal Saline 1,000 ML 80 ML IV (22:59)
[2024-10-27] MEDS: Normal Saline Flush 10 ML SYR (23:19)
[2024-10-28 03:03] VITALS: BP 97/56; PULSE 99; RESP 20; TEMP 36.6; O2SAT 100
[2024-10-28 03:34] LABS: Glucose 443 mg/dL (74-106)
[2024-10-28] MEDS: Insulin Aspart 300 UNITS/3 ML PEN 8 UNITS SC (03:59)
[2024-10-28] MEDS: Levothyroxine 125 MCG TAB PO (06:29)
[2024-10-28] MEDS: Hydrocortisone 10 MG TAB 25 MG PO ×2 (07:21→17:30)
[2024-10-28] MEDS: Insulin Aspart 300 UNITS/3 ML PEN SC ×4 (07:37→23:06)
[2024-10-28] MEDS: FLUoxetine 20 MG CAP 40 MG PO (07:37)
[2024-10-28 08:23] VITALS: BP 107/61; PULSE 104; RESP 20; TEMP 36.7; O2SAT 99
[2024-10-28] MEDS: Insulin Glargine 300 UNITS/3 ML PEN 25 UNITS SC (08:41)
--- NOTE | 2024-10-28 09:12 | PDOC.CMIN ---
Date of service: 10/28/24 Time of Service: 09:12 Care Management Initial Assmt Initial Assessment Reason for Hospitalization: UTI, adrenal insufficiency Functional Status/Living Situation Patient Presentation: Kaela was lying in bed, resting, when CM met with her. She stated that she lives in [place], [place], but was visiting a friend in [place] when she felt sick and went to the nearest hospital, [facility]. She stated that she is well connected with a PCP local to her, Roxie Euceda, who practices out of [place], [place] at [facility]. She reported that she is independent at baseline, and did not indicate the need for any services in the community. Per report, she is on IV antibiotics, treating a UTI. CM will continue to follow. Town of Residence: [place], [place] Significant Other/Family: Local Natural Supports: [employer] Instrumental Activities of Daily Living (ADLs): Independent Medications Medication Management: No Issues/Barriers identified Advance Directives Advance Directives: Do you have an Advance Directive: AD On File at [facility]: N 06/15/16 10:18 Date Asked 10/27/24 10/27/24 15:30 AD Date Reviewed COLST On File at [facility] COLST Date Scanned Code Status Resuscitation Status Full Code Insurance Coverage/Financial Issues Insurance: [employer] Care Team Visit Care Team Role Provider Type Unknown Unknown Primary Care Provider STAFF PHYSICIAN Tete Orellana RDN, ENDER Other Providers FUR POLISHER Luciana Casarez Other Providers FUR POLISHERNICK Brown RDN Other Providers FUR POLISHER BRENDEN Streeter Emergency Provider PHYSICIANS DREDGE OPERATOR Michael Landry MD Admit Provider [facility] STAFF PHYSICIAN Attending Provider Discharge Potential Discharge Needs: PCP F/U Appt Anticipated Barriers to Discharge: None Identified Patient/Family Education Needs: Review discharge instructions, discuss Ask Me Three Transportation: Private vehicle Plan: Anticipate Kaela will return home once medically cleared. She will be driven home via private vehicle by a friend/family member. She will follow up with her PCP and discharge plan of care. CM will continue to follow. Social Determinants of Health Screening Social Determinants of Health last assessed: 10/28/24 Will the Patient Participate in the Screening?: Yes Do you worry about having a steady place to live?: no Problems where you live: no known problems In the past 12 months, have you had to go without electric, gas, oil or water in your home?: no Have you or anyone in your house had to go without enough food to eat?: no Has lack of transportation kept you from medical appointments or from doing things needed for daily living?: no Has anyone in your life made you feel unsafe or unsupported?: no How hard is it for you to pay for the very basics like food, housing, medical care, and heating? Would you say it is:: Not hard at all Do you want help finding or keeping work or a job?: I do not need or want help If for any reason you need help with day-to-day activities such as bathing, preparing meals, shopping, managing finances, etc., do you get the help you need?: I don?t need any help How often do you feel lonely or isolated from those around you?: Never Do you speak a language other than Norwegian at home?: No Does the patient want assistance with any of the above?: No Health Related Social Needs Health related social needs: housing instability, housed, with risk of homelessness (Z59.811) PFSH All Active Problems (Updated 10/27/24 @ 22:28 by HIRAL ROLON) Sepsis (Acute) UTI (urinary tract infection) (Acute) Hypomagnesemia (Acute) Hyperglycemia (Acute) Emphysematous cystitis (Acute) Social History Smoking/Tobacco Use Status: Never Smoking risk assessment performed?: Yes Alcohol Intake: never Drug use: Never Housing: house
[2024-10-28] MEDS: Normal Saline 1,000 ML 80 ML IV (11:05)
[2024-10-28] MEDS: Insulin Aspart 100 UNITS/ML UNIT 15 UNITS SC (15:30)
[2024-10-28 15:32] VITALS: BP 116/59; PULSE 112; RESP 19; TEMP 37.8; O2SAT 90
--- NOTE | 2024-10-28 15:40 | PGE_ITS ---
Date of Service Date of service: 10/28/24 Time of Service: 15:40 Subjective Subjective Interval history since last seen: Pt seen and examined this afternoon. Pt does c/o some abdominal discomfort which is located mid lower abd. Pt also is noted to be significantly hyperglycemic. POC d/w pt and nursing staff Objective Last Vital Signs Temp 37.8 C H 10/28/24 15:32 Pulse 112 H 10/28/24 15:32 Resp 19 10/28/24 15:32 BP 116/59 L 10/28/24 15:32 Pulse Ox 90 L 10/28/24 15:32 Laboratory Results - last 24 hr 10/27/24 10/27/24 10/27/24 16:06 17:52 18:55 WBC 11.67 H RBC 5.68 H Hgb 14.2 Hct 43.9 MCV 77 L MCH 25.0 L MCHC 32.3 RDW 13.7 Plt Count 267 MPV 11.2 H Immature Gran % 0.3 Neutrophils % 63.1 Lymphocytes % 22.2 Monocytes % 6.1 Eosinophils % 7.4 Basophils % 0.9 Nucleated RBC % 0.0 Absolute Neutrophils 7.36 H Absolute Lymphocytes 2.59 Absolute Monocytes 0.71 Absolute Eosinophils 0.86 H Absolute Basophils 0.11 VBG pH 7.41 VBG pCO2 30 L VBG pO2 31 VBG HCO3 19 L VBG Total CO2 17 L VBG O2 Saturation 59 VBG Base Excess -6 L VBG Lactate 3.7 H* Sodium 136 140 Potassium 3.9 3.8 Chloride 97 L 104 Carbon Dioxide 18.8 L 25.6 Anion Gap 20.2 H 10.4 BUN 8 7 Creatinine 1.2 H 1.0 Est GFR (CKD-EPI 2020) 61.30 76.29 Glucose 387 H 74 Calcium 9.4 9.2 Magnesium 1.5 L Total Bilirubin 1.89 H AST 25 ALT 33 Alkaline Phosphatase 231 H Total Protein 7.7 Albumin 3.4 Lipase 9 Urine Color Yellow Urine Clarity Clear Urine pH 6.0 Ur Specific [place] 1.010 Urine Protein Negative Urine Ketones 80 H Urine Blood Small H Urine Nitrite Negative Urine Bilirubin Small H Urine Urobilinogen 0.2 Ur Leukocyte Esterase Moderate H Urine RBC 3-5 H Urine WBC >50 H Ur Epithelial Cells Few Urine Crystals Negative Urine Bacteria Few Urine Casts Negative Urine Mucus Negative Urine Other Rare Transitional Ur Culture Indicated? Yes Urine Glucose 500 H 10/27/24 10/28/24 20:20 03:14 WBC RBC Hgb Hct MCV MCH MCHC RDW Plt Count MPV Immature Gran % Neutrophils % Lymphocytes % Monocytes % Eosinophils % Basophils % Nucleated RBC % Absolute Neutrophils Absolute Lymphocytes Absolute Monocytes Absolute Eosinophils Absolute Basophils VBG pH VBG pCO2 VBG pO2 VBG HCO3 VBG Total CO2 VBG O2 Saturation VBG Base Excess VBG Lactate 1.6 H Sodium Potassium Chloride Carbon Dioxide Anion Gap BUN Creatinine Est GFR (CKD-EPI 2020) Glucose 443 H Calcium Magnesium Total Bilirubin AST ALT Alkaline Phosphatase Total Protein Albumin Lipase Urine Color Urine Clarity Urine pH Ur Specific [place] Urine Protein Urine Ketones Urine Blood Urine Nitrite Urine Bilirubin Urine Urobilinogen Ur Leukocyte Esterase Urine RBC Urine WBC Ur Epithelial Cells Urine Crystals Urine Bacteria Urine Casts Urine Mucus Urine Other Ur Culture Indicated? Urine Glucose PAWSS Have you Been Recently Intoxicated or Drunk Within the Last 30 days?: No Have you Ever Experienced Previous Episodes of Alcohol Withdrawal?: No Have you ever Experienced Withdrawal Seizures?: No Have you ever Experienced Delirium Tremens(DT)s?: No Have you ever undergone Alcohol Rehabilitation Treatment (i.e, inpt ot outpatient treatment programs)?: No Have you ever Experienced Blackouts?: No Have you ever Combined Alcohol with other Downers within the last 90 days?: No Have you ever Combined Alcohol with any other Substance of Abuse during the last 90 days?: No Positive Blood Alcohol level on Presentation? [PCS.BAL]: No Evidence of Increased Autonomic Activity (i.e. HR>120, tremor, sweating, agitation, nausea)?: No Result: 0 Time Spent with Patient Time Spent with Patient: 35-49 minutes Time was spent: preparing to see the patient(eg.review tests), obtaining and/or reviewing separately otained hiistory, ordering medications,tests, procedures, referring, communicating with other health mall plant caretaker, indepentently interpreting results, counseling the patient and care coordination
[2024-10-28 15:41] VITALS: BP 117/60; PULSE 111; RESP 22; TEMP 37.4; O2SAT 100
--- NOTE | 2024-10-28 15:44 | TELEFU_ITS ---
Date of service: 10/28/24 Time of Service: 14:00 Nutrition Note NOTE: 34yo female pt admitted with sepsis, UTI, hyperglycemia (has been in DKA prior). home diabetes meds include 40 units insulin degludec AM and insulin Lispro for corrections and carb bolus. [place] [facility] [place]Omni pod[place] currently uses insulin pens and dexcom CGM. Pt states she has a new correction scale but unsure of the details - has printed it recently and is at home- states she feels it starts at glucose level of 180. Has been on clear liq diet from admission to lunch today. the nature of no protein and fat with carb-containing clear liquids could explain partly her higher glucose along with general counter-regulatory hormone involvement with septic condition. Upgraded for dinner this evening with encouragement of little more protein and fat containing foods - will try come chicken soup and half sandwich. Ordered for 25 units insulin glargine daily with sensitive sliding scale insulin aspart TID at meals. As glargine lasts ~24 hours and degludec lasts ~42 hours, would suggest increase in basal insulin to 34units daily, and continue with current correction scale, however I would recommend adding additional insulin aspart for carbohydrate coverage at meals TID at 1unit per 15grams carbohydrate. Kitchen will provide carb totals on pt meal tickets for ease of calculations for nursing. Would also recommend fingerstick AC and HS and adding HS correction at 22:00 per current scale. Carb coverage ratio and basal insulin can be titrated up after monitoring glucose response over the next 24-48 hours. Time Spent in Nutritional Counseling and Treatment: 15 minutes
[2024-10-28 15:53] VITALS: BP 126/61; PULSE 109; RESP 16; TEMP 37.4; O2SAT 100
[2024-10-28 16:47] LABS: ALT 25 U/L (14-59); AST 18 U/L (15-37); Alkaline Phosphatase 193 U/L (46-116); Anion Gap 24.3 mmol/L (3-11); BUN 10 mg/dL (7-18); Bilirubin, Total 1.03 mg/dL (0.2-1.0); CO2 9.7 mmol/L (21.0-32.0); CREATININE 1.3 mg/dL (0.55-1.02); Calcium 8.3 mg/dL (8.5-10.1); Chloride 97 mmol/L (98-107); Estimated GFR 55.68 (mL/min/1.73m2); Glucose 457 mg/dL (74-106); Potassium 4.8 mmol/L (3.5-5.1); Sodium 131 mmol/L (136-145); Total Protein 6.5 g/dL (6.4-8.2)
[2024-10-28] MEDS: Ondansetron 4 MG/2 ML VIAL IVP (17:06)
[2024-10-28] MEDS: cefTRIAXone 1 GM/50 ML BAG IVPB (17:54)
[2024-10-28] MEDS: Normal Saline 1,000 ML 150 ML IV ×2 (18:00→21:54)
[2024-10-28] MEDS: Phenazopyridine 100 MG TAB PO (21:04)
[2024-10-28 21:07] VITALS: BP 118/70; PULSE 104; RESP 20; TEMP 36.9; O2SAT 99
[2024-10-28 23:22] LABS: Anion Gap 21.7 mmol/L (3-11); BUN 12 mg/dL (7-18); CO2 11.3 mmol/L (21.0-32.0); CREATININE 1.3 mg/dL (0.55-1.02); Calcium 8.7 mg/dL (8.5-10.1); Chloride 99 mmol/L (98-107); Estimated GFR 55.68 (mL/min/1.73m2); Glucose 455 mg/dL (74-106); Potassium 5.5 mmol/L (3.5-5.1); Sodium 132 mmol/L (136-145)
[2024-10-28] MEDS: Insulin Aspart 300 UNITS/3 ML PEN 11 UNITS SC (23:44)
[2024-10-29] VITALS (124 sets, daily range): BP systolic 104–138; BP diastolic 50–104; PULSE 89–115; RESP 11–30; TEMP 36–37.3; O2SAT 97–100
[2024-10-29] MEDS: Normal Saline Flush 10 ML SYR IVP (00:05)
[2024-10-29] MEDS: Ondansetron 4 MG/2 ML VIAL IVP ×2 (00:05→04:30)
--- NOTE | 2024-10-29 01:55 | CE_ITS ---
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 She was admitted with a UTI and now has progressed to DKA. She did receive 2 L of fluid in the ED with stress better but had a paucity of fluid IV after that now on fluid resuscitation with normal saline at 150 cc/h now increased to 250 cc/h. Last BMP did show acidosis with markedly low TCO2 at around 10 with little improvement since fluid resuscitation started in the late afternoon. Patient's glucometers were remaining high above 400 with little response to sensitive sliding scale coverage. This [place] coverage was increased to moderate scale with glucometers before meals and at bedtime with the patient not able to eat food down. She continues to have vomiting wanting to conservative therapy and was going into DKA. She was transferred to the ICU and will be treated with more aggressive fluid resuscitation and insulin infusion especially since her potassium was increasing about 5 with her acidosis. She was not able to take her oral hydrocortisone and switch to IV. She also had increased antiemetics with continued treatment of her underlying UTI which prompted her acute illness. The patient does have a Carvajal. Physical exam revealed an acutely ill appearing young lady with normal build, flattened affect, HEENT was normal slightly dry oral mucosa, lungs were clear, heart had tachycardia with regular rhythm, abdomen was soft with bowel sounds positive and no focal tenderness, extremity without edema or cyanosis and peripheral pulses were intact. Neurological exam was intact. Skin was warm and dry. See lab results which will be repeated every 4 hours with glucometers each 1 hour and yellow protocol with insulin infusion initiated. She does have continued acidosis with increased anion gap which will be treated aggressively with IV fluids and may need to switch to D5 normal saline or D5 half-normal saline if her potassium remains high and we still need to clear her acidosis and normalize her anion gap. Hydrocortisone will be given IV for Massac's disease. Assessment/plan: Progressive DKA in a patient with insulin-dependent diabetes mellitus and acute UTI. Treatment as above. Time Spent with Patient Time spent in critical care(minutes): 45 Time Spent Included: Coordination of care, Chart review, Documenting critically ill care, Time at immediate bedside and Discussing critically ill care with other medical staff
[2024-10-29] MEDS: INSULIN REGULAR IN 0.9 % NACL 100 UNIT/100 ML BAG IVINF ×2 (01:57→18:10)
[2024-10-29] MEDS: Hydrocortisone SOD SUC. 100 MG VIAL IVP ×2 (01:59→10:18)
[2024-10-29] MEDS: Prochlorperazine 10 MG/2 ML VIAL IVP ×2 (02:00→20:01)
[2024-10-29] MEDS: Normal Saline 1,000 ML 250 ML IV (02:46)
[2024-10-29 03:26] LABS: Anion Gap 15.5 mmol/L (3-11); BUN 10 mg/dL (7-18); CO2 15.5 mmol/L (21.0-32.0); CREATININE 1.2 mg/dL (0.55-1.02); Calcium 8.3 mg/dL (8.5-10.1); Chloride 106 mmol/L (98-107); Glucose 187 mg/dL (74-106); Potassium 4.4 mmol/L (3.5-5.1); Sodium 137 mmol/L (136-145)
[2024-10-29] MEDS: POTASSIUM CHLORIDE/D5-0.9%NACL 1,000 ML 150 MEQ IV ×2 (03:52→17:35)
[2024-10-29 07:09] LABS: Abs Immature Grans 0.05 10^3/uL (0.0-0.06); Absolute Basophil Count 0.03 10^3/uL (0.0-0.2); Absolute Monocyte Count 0.33 10^3/uL (0.1-0.8); Absolute Neutrophil Count 8.26 10^3/uL (1.2-6.7); Basophils % 0.3 %; HCT 33.1 % (36.0-46.0); HGB 10.7 g/dL (11.2-15.7); Immature Grans % 0.5 %; Lymphocytes % 11.3 %; MCH 25.4 pg (27.0-33.0); MCHC 32.3 % (32.0-36.0); MCV 79 fL (80-95); MPV 10.2 fL (8.0-11.0); Monocytes % 3.4 %; Neutrophils % 84.5 %; Platelet Count 251 10^3/uL (130-400); RBC 4.21 10^6/uL (3.93-5.22); RDW-SD 39.7 fL; WBC 9.77 10^3/uL (4.4-10.8)
[2024-10-29 07:38] LABS: ALT 20 U/L (14-59); AST 14 U/L (15-37); Albumin 2.9 g/dL (3.4-5.0); Alkaline Phosphatase 168 U/L (46-116); Anion Gap 15.7 mmol/L (3-11); BUN 9 mg/dL (7-18); Bilirubin, Total 0.57 mg/dL (0.2-1.0); CO2 16.3 mmol/L (21.0-32.0); CREATININE 1.2 mg/dL (0.55-1.02); Calcium 8.4 mg/dL (8.5-10.1); Chloride 107 mmol/L (98-107); Glucose 180 mg/dL (74-106); Potassium 4.6 mmol/L (3.5-5.1); Sodium 139 mmol/L (136-145); Total Protein 6.3 g/dL (6.4-8.2)
[2024-10-29] MEDS: Insulin Glargine 300 UNITS/3 ML PEN 25 UNITS SC (08:19)
[2024-10-29 08:35] LABS: Magnesium 1.6 mg/dL (1.8-2.4); PHOSPHORUS 2.2 mg/dL (2.6-4.7)
[2024-10-29 08:54] LABS: Hemoglobin A1C 11.4 % (<5.7)
[2024-10-29] MEDS: Phenazopyridine 100 MG TAB PO ×2 (09:05→20:00)
[2024-10-29] MEDS: Enoxaparin 40 MG/0.4 ML SYR SC (10:20)
[2024-10-29] MEDS: Levothyroxine 125 MCG TAB PO (10:20)
[2024-10-29 11:22] LABS: Anion Gap 13.9 mmol/L (3-11); BUN 6 mg/dL (7-18); CO2 17.1 mmol/L (21.0-32.0); CREATININE 1.1 mg/dL (0.55-1.02); Calcium 8.3 mg/dL (8.5-10.1); Chloride 105 mmol/L (98-107); Estimated GFR 68.04 (mL/min/1.73m2); Glucose 252 mg/dL (74-106); Potassium 4.7 mmol/L (3.5-5.1); Sodium 136 mmol/L (136-145)
--- NOTE | 2024-10-29 11:42 | PGE_ITS ---
Date of Service Date of service: 10/29/24 Time of Service: 11:42 Assessment and Plan Assessment and plan (1) Hyperglycemia: Status: Acute Assessment and plan: Pt continues to improve in regards to short term therapy. Her insulin drip has been held and will c/w home meds and sliding scale. A1c of 11.4 indicates undertreatment vs noncompliance (2) Hypomagnesemia: Status: Acute Assessment and plan: will replace (3) UTI (urinary tract infection): Status: Acute Assessment and plan: Urine Culture Final 10/29/24-1120 Day 1 Result ISOLATES BELOW ISOLATE 1 COLONY COUNT >100,000 COLONIES/ML ISOLATE 1 APPEARANCE Gram Positive Lizzy ISOLATE 1 ACTION IDENTIFICATION TO FOLLOW ISOLATE 2 COLONY COUNT <10,000 COLONIES/ML ISOLATE 2 APPEARANCE Mixed Gram Positive Lizzy Day 2 Result ISOLATES BELOW ISOLATE 1 COLONY COUNT >100,000 COLONIES/ML ISOLATE 1 APPEARANCE Gram Positive Lizzy ISOLATE 1 ACTION IDENTIFICATION TO FOLLOW ISOLATE 2 COLONY COUNT 10,000 - 50,000 COLONIES/ML ISOLATE 2 APPEARANCE Mixed Gram Positive Lizzy Organism 1 Strep pyogenes (Group A) COLONY COUNT >100,000 COLONIES/ML Organism 2 Gram positive lizzy, mixed COLONY COUNT 10,000 - 50,000 COLONIES/ML Awaiting culture and sensitivity results. Currently on rocephin (4) Hyperkalemia: Status: Acute Assessment and plan: resolved (5) Low mean corpuscular volume (MCV): Status: Acute Assessment and plan: will check a Fe/TIBC level. Most likely the pt has iron deficiency anemia (6) Diabetes: Status: Chronic Assessment and plan: as above Subjective Subjective Interval history since last seen: Pt seen and examined in the ICU. POC d/w pt as well as bed side during ICU huddle. Notes reviewed from last night including event note and transfer to ICU. This AM, the pt states that she is feeling better and her abdominal discomfort has resolved Exam Narrative Exam Narrative: Head eyes ears nose and throat: Normocephalic atraumatic mucous membranes moist extract motions are intact pupils are equal round reactive to light Neck: No lymphadenopathy no JVD no thyromegaly Cardiovascular: Tachycardic but no murmur rubs gallops Lungs: Clear to auscultation bilaterally no accessory muscle use noted Abdomen: Bowel sounds are active her midepigastric pain has resolved Extremities: No sinus clubbing or edema Neurologic: Cranial nerves II through XII intact as tested reflexes in upper lower extremity normal as tested Psych: Alert and oriented x 3 affect is appropriate is able to give a linear history Objective Last Vital Signs Temp 36.9 C 10/29/24 08:38 Pulse 99 H 10/29/24 11:01 Resp 21 10/29/24 10:50 BP 110/68 10/29/24 11:01 Pulse Ox 100 10/29/24 11:30 Laboratory Results - last 24 hr 10/28/24 10/28/24 10/28/24 16:21 16:21 23:00 WBC RBC Hgb Hct MCV MCH MCHC RDW Plt Count MPV Immature Gran % Neutrophils % Lymphocytes % Monocytes % Eosinophils % Basophils % Nucleated RBC % Absolute Neutrophils Absolute Lymphocytes Absolute Monocytes Absolute Eosinophils Absolute Basophils Sodium 131 L 132 L Potassium 4.8 D 5.5 H Chloride 97 L 99 Carbon Dioxide 9.7 L 11.3 L Anion Gap 24.3 H 21.7 H BUN 10 12 Creatinine 1.3 H 1.3 H Est GFR (CKD-EPI 2020) 55.68 55.68 Glucose 457 H Cancelled 455 H Hemoglobin A1c Calcium 8.3 L 8.7 Phosphorus Magnesium Total Bilirubin 1.03 H AST 18 ALT 25 Alkaline Phosphatase 193 H Total Protein 6.5 Albumin 3.0 L 10/29/24 10/29/24 10/29/24 03:00 03:00 03:00 WBC RBC Hgb Hct MCV MCH MCHC RDW Plt Count MPV Immature Gran % Neutrophils % Lymphocytes % Monocytes % Eosinophils % Basophils % Nucleated RBC % Absolute Neutrophils Absolute Lymphocytes Absolute Monocytes Absolute Eosinophils Absolute Basophils Sodium Cancelled 137 Potassium Cancelled 4.4 D Chloride Cancelled Carbon Dioxide Anion Gap BUN Creatinine Est GFR (CKD-EPI 2020) Glucose Hemoglobin A1c Calcium Phosphorus Magnesium Total Bilirubin AST ALT Alkaline Phosphatase Total Protein Albumin 10/29/24 10/29/24 10/29/24 03:00 03:00 03:00 WBC RBC Hgb Hct MCV MCH MCHC RDW Plt Count MPV Immature Gran % Neutrophils % Lymphocytes % Monocytes % Eosinophils % Basophils % Nucleated RBC % Absolute Neutrophils Absolute Lymphocytes Absolute Monocytes Absolute Eosinophils Absolute Basophils Sodium Potassium Chloride 106 Carbon Dioxide Cancelled 15.5 L Anion Gap Cancelled 15.5 H BUN Cancelled Creatinine Est GFR (CKD-EPI 2020) Glucose Hemoglobin A1c Calcium Phosphorus Magnesium Total Bilirubin AST ALT Alkaline Phosphatase Total Protein Albumin 10/29/24 10/29/24 10/29/24 03:00 03:00 03:00 WBC RBC Hgb Hct MCV MCH MCHC RDW Plt Count MPV Immature Gran % Neutrophils % Lymphocytes % Monocytes % Eosinophils % Basophils % Nucleated RBC % Absolute Neutrophils Absolute Lymphocytes Absolute Monocytes Absolute Eosinophils Absolute Basophils Sodium Potassium Chloride Carbon Dioxide Anion Gap BUN 10 Creatinine Cancelled 1.2 H Est GFR (CKD-EPI 2020) Cancelled 61.30 Glucose Cancelled Hemoglobin A1c Calcium Phosphorus Magnesium Total Bilirubin AST ALT Alkaline Phosphatase Total Protein Albumin 10/29/24 10/29/24 10/29/24 03:00 03:00 06:59 WBC 9.77 RBC 4.21 Hgb 10.7 L D Hct 33.1 L MCV 79 L MCH 25.4 L MCHC 32.3 RDW 14.0 Plt Count 251 MPV 10.2 Immature Gran % 0.5 Neutrophils % 84.5 Lymphocytes % 11.3 Monocytes % 3.4 Eosinophils % 0.0 Basophils % 0.3 Nucleated RBC % 0.0 Absolute Neutrophils 8.26 H Absolute Lymphocytes 1.10 L Absolute Monocytes 0.33 Absolute Eosinophils 0.00 Absolute Basophils 0.03 Sodium 139 Potassium 4.6 Chloride 107 Carbon Dioxide 16.3 L Anion Gap 15.7 H BUN 9 Creatinine 1.2 H Est GFR (CKD-EPI 2020) 61.30 Glucose 187 H 180 H Hemoglobin A1c 11.4 H Calcium Cancelled 8.3 L 8.4 L Phosphorus 2.2 L Magnesium 1.6 L Total Bilirubin 0.57 AST 14 L ALT 20 Alkaline Phosphatase 168 H Total Protein 6.3 L Albumin 2.9 L 10/29/24 10/29/24 07:00 10:59 WBC RBC Hgb Hct MCV MCH MCHC RDW Plt Count MPV Immature Gran % Neutrophils % Lymphocytes % Monocytes % Eosinophils % Basophils % Nucleated RBC % Absolute Neutrophils Absolute Lymphocytes Absolute Monocytes Absolute Eosinophils Absolute Basophils Sodium Cancelled 136 Potassium Cancelled 4.7 Chloride Cancelled 105 Carbon Dioxide Cancelled 17.1 L Anion Gap Cancelled 13.9 H BUN Cancelled 6 L Creatinine Cancelled 1.1 H Est GFR (CKD-EPI 2020) Cancelled 68.04 Glucose Cancelled 252 H Hemoglobin A1c Calcium Cancelled 8.3 L Phosphorus Magnesium Total Bilirubin AST ALT Alkaline Phosphatase Total Protein Albumin PAWSS Have you Been Recently Intoxicated or Drunk Within the Last 30 days?: No Have you Ever Experienced Previous Episodes of Alcohol Withdrawal?: No Have you ever Experienced Withdrawal Seizures?: No Have you ever Experienced Delirium Tremens(DT)s?: No Have you ever undergone Alcohol Rehabilitation Treatment (i.e, inpt ot outpatient treatment programs)?: No Have you ever Experienced Blackouts?: No Have you ever Combined Alcohol with other Downers within the last 90 days?: No Have you ever Combined Alcohol with any other Substance of Abuse during the last 90 days?: No Positive Blood Alcohol level on Presentation? [PCS.BAL]: No Evidence of Increased Autonomic Activity (i.e. HR>120, tremor, sweating, agitation, nausea)?: No Result: 0 Time Spent with Patient Time Spent with Patient: 35-49 minutes Time was spent: preparing to see the patient(eg.review tests), obtaining and/or reviewing separately otained hiistory, ordering medications,tests, procedures, referring, communicating with other health primary care provider, indepentently interpreting results, counseling the patient and care coordination
[2024-10-29] MEDS: Insulin Aspart 300 UNITS/3 ML PEN SC ×2 (13:42→16:41)
[2024-10-29] MEDS: Fludrocortisone 0.1 MG TAB 0.2 MG PO (14:27)
[2024-10-29 15:19] LABS: Anion Gap 15.5 mmol/L (3-11); BUN 8 mg/dL (7-18); CO2 14.5 mmol/L (21.0-32.0); CREATININE 1.1 mg/dL (0.55-1.02); Calcium 8.2 mg/dL (8.5-10.1); Chloride 101 mmol/L (98-107); Estimated GFR 68.04 (mL/min/1.73m2); Glucose 435 mg/dL (74-106); Potassium 5.1 mmol/L (3.5-5.1); Sodium 131 mmol/L (136-145)
--- NOTE | 2024-10-29 16:47 | W.PM.PROGNOT ---
Date of Service Date of service: 10/28/24 Time of Service: 16:47 Assessment and Plan Assessment and plan (1) Hyperglycemia: Status: Acute Assessment and plan: PT did have elevated bg as well as anion gap elevation which responded to IVF and insulin. The pt is on steroids which will cause an elevation in blood glucose (2) Hypomagnesemia: Status: Acute Assessment and plan: will replace (3) UTI (urinary tract infection): Status: Acute Assessment and plan: Urine Culture Final 10/29/24-112 Day 1 Result ISOLATES BELOW ISOLATE 1 COLONY COUNT >100,000 COLONIES/ML ISOLATE 1 APPEARANCE Gram Positive Lizzy ISOLATE 1 ACTION IDENTIFICATION TO FOLLOW ISOLATE 2 COLONY COUNT <10,000 COLONIES/ML ISOLATE 2 APPEARANCE Mixed Gram Positive Lizzy Day 2 Result ISOLATES BELOW ISOLATE 1 COLONY COUNT >100,000 COLONIES/ML ISOLATE 1 APPEARANCE Gram Positive Lizzy ISOLATE 1 ACTION IDENTIFICATION TO FOLLOW ISOLATE 2 COLONY COUNT 10,000 - 50,000 COLONIES/ML ISOLATE 2 APPEARANCE Mixed Gram Positive Lizzy Organism 1 Strep pyogenes (Group A) COLONY COUNT >100,000 COLONIES/ML Organism 2 Gram positive lizzy, mixed COLONY COUNT 10,000 - 50,000 COLONIES/ML Awaiting culture and sensitivity results. Currently on rocephin (4) Hyperkalemia: Status: Acute Assessment and plan: resolved (5) Low mean corpuscular volume (MCV): Status: Acute Assessment and plan: will check a Fe/TIBC level. Most likely the pt has iron deficiency anemia (6) Diabetes: Status: Chronic Assessment and plan: as above Subjective Subjective Interval history since last seen: pt seen and examined in her room. C/o mid epigastric pain but was otw ok. NS did report pt feeling somewhat weaker throughout the day. This note should replace original note on 10/28/24 which was incomplete. Exam Narrative Exam Narrative: Head eyes ears nose and throat: Normocephalic atraumatic mucous membranes moist extract motions are intact pupils are equal round reactive to light Neck: No lymphadenopathy no JVD no thyromegaly Cardiovascular: Tachycardic but no murmur rubs gallops Lungs: Clear to auscultation bilaterally no accessory muscle use noted Abdomen: Bowel sounds are active her midepigastric pain has resolved Extremities: No sinus clubbing or edema Neurologic: Cranial nerves II through XII intact as tested reflexes in upper lower extremity normal as tested Psych: Alert and oriented x 3 affect is appropriate is able to give a linear history Objective Last Vital Signs Temp 37.3 C 10/29/24 13:59 Pulse 93 H 10/29/24 16:00 Resp 13 10/29/24 16:00 BP 116/65 10/29/24 16:00 Pulse Ox 99 10/29/24 16:00 Laboratory Results - last 24 hr 10/28/24 10/28/24 10/29/24 16:21 23:00 03:00 WBC RBC Hgb Hct MCV MCH MCHC RDW Plt Count MPV Immature Gran % Neutrophils % Lymphocytes % Monocytes % Eosinophils % Basophils % Nucleated RBC % Absolute Neutrophils Absolute Lymphocytes Absolute Monocytes Absolute Eosinophils Absolute Basophils Sodium 131 L 132 L Cancelled Potassium 4.8 D 5.5 H Chloride 97 L 99 Carbon Dioxide 9.7 L 11.3 L Anion Gap 24.3 H 21.7 H BUN 10 12 Creatinine 1.3 H 1.3 H Est GFR (CKD-EPI 2020) 55.68 55.68 Glucose 457 H 455 H Hemoglobin A1c Calcium 8.3 L 8.7 Phosphorus Magnesium Total Bilirubin 1.03 H AST 18 ALT 25 Alkaline Phosphatase 193 H Total Protein 6.5 Albumin 3.0 L 10/29/24 10/29/24 10/29/24 03:00 03:00 03:00 WBC RBC Hgb Hct MCV MCH MCHC RDW Plt Count MPV Immature Gran % Neutrophils % Lymphocytes % Monocytes % Eosinophils % Basophils % Nucleated RBC % Absolute Neutrophils Absolute Lymphocytes Absolute Monocytes Absolute Eosinophils Absolute Basophils Sodium 137 Potassium Cancelled 4.4 D Chloride Cancelled 106 Carbon Dioxide Cancelled Anion Gap BUN Creatinine Est GFR (CKD-EPI 2020) Glucose Hemoglobin A1c Calcium Phosphorus Magnesium Total Bilirubin AST ALT Alkaline Phosphatase Total Protein Albumin 10/29/24 10/29/24 10/29/24 03:00 03:00 03:00 WBC RBC Hgb Hct MCV MCH MCHC RDW Plt Count MPV Immature Gran % Neutrophils % Lymphocytes % Monocytes % Eosinophils % Basophils % Nucleated RBC % Absolute Neutrophils Absolute Lymphocytes Absolute Monocytes Absolute Eosinophils Absolute Basophils Sodium Potassium Chloride Carbon Dioxide 15.5 L Anion Gap Cancelled 15.5 H BUN Cancelled 10 Creatinine Cancelled Est GFR (CKD-EPI 2020) Glucose Hemoglobin A1c Calcium Phosphorus Magnesium Total Bilirubin AST ALT Alkaline Phosphatase Total Protein Albumin 10/29/24 10/29/24 10/29/24 03:00 03:00 03:00 WBC RBC Hgb Hct MCV MCH MCHC RDW Plt Count MPV Immature Gran % Neutrophils % Lymphocytes % Monocytes % Eosinophils % Basophils % Nucleated RBC % Absolute Neutrophils Absolute Lymphocytes Absolute Monocytes Absolute Eosinophils Absolute Basophils Sodium Potassium Chloride Carbon Dioxide Anion Gap BUN Creatinine 1.2 H Est GFR (CKD-EPI 2020) Cancelled 61.30 Glucose Cancelled 187 H Hemoglobin A1c Calcium Cancelled Phosphorus Magnesium Total Bilirubin AST ALT Alkaline Phosphatase Total Protein Albumin 10/29/24 10/29/24 10/29/24 03:00 06:59 07:00 WBC 9.77 RBC 4.21 Hgb 10.7 L D Hct 33.1 L MCV 79 L MCH 25.4 L MCHC 32.3 RDW 14.0 Plt Count 251 MPV 10.2 Immature Gran % 0.5 Neutrophils % 84.5 Lymphocytes % 11.3 Monocytes % 3.4 Eosinophils % 0.0 Basophils % 0.3 Nucleated RBC % 0.0 Absolute Neutrophils 8.26 H Absolute Lymphocytes 1.10 L Absolute Monocytes 0.33 Absolute Eosinophils 0.00 Absolute Basophils 0.03 Sodium 139 Cancelled Potassium 4.6 Cancelled Chloride 107 Cancelled Carbon Dioxide 16.3 L Cancelled Anion Gap 15.7 H Cancelled BUN 9 Cancelled Creatinine 1.2 H Cancelled Est GFR (CKD-EPI 2020) 61.30 Cancelled Glucose 180 H Cancelled Hemoglobin A1c 11.4 H Calcium 8.3 L 8.4 L Cancelled Phosphorus 2.2 L Magnesium 1.6 L Total Bilirubin 0.57 AST 14 L ALT 20 Alkaline Phosphatase 168 H Total Protein 6.3 L Albumin 2.9 L 10/29/24 10/29/24 10:59 14:57 WBC RBC Hgb Hct MCV MCH MCHC RDW Plt Count MPV Immature Gran % Neutrophils % Lymphocytes % Monocytes % Eosinophils % Basophils % Nucleated RBC % Absolute Neutrophils Absolute Lymphocytes Absolute Monocytes Absolute Eosinophils Absolute Basophils Sodium 136 131 L Potassium 4.7 5.1 Chloride 105 101 Carbon Dioxide 17.1 L 14.5 L Anion Gap 13.9 H 15.5 H BUN 6 L 8 Creatinine 1.1 H 1.1 H Est GFR (CKD-EPI 2020) 68.04 68.04 Glucose 252 H 435 H Hemoglobin A1c Calcium 8.3 L 8.2 L Phosphorus Magnesium Total Bilirubin AST ALT Alkaline Phosphatase Total Protein Albumin PAWSS Have you Been Recently Intoxicated or Drunk Within the Last 30 days?: No Have you Ever Experienced Previous Episodes of Alcohol Withdrawal?: No Have you ever Experienced Withdrawal Seizures?: No Have you ever Experienced Delirium Tremens(DT)s?: No Have you ever undergone Alcohol Rehabilitation Treatment (i.e, inpt ot outpatient treatment programs)?: No Have you ever Experienced Blackouts?: No Have you ever Combined Alcohol with other Downers within the last 90 days?: No Have you ever Combined Alcohol with any other Substance of Abuse during the last 90 days?: No Positive Blood Alcohol level on Presentation? [PCS.BAL]: No Evidence of Increased Autonomic Activity (i.e. HR>120, tremor, sweating, agitation, nausea)?: No Result: 0 Time Spent with Patient Time Spent with Patient: 25-34 minutes Time was spent: preparing to see the patient(eg.review tests), obtaining and/or reviewing separately otained hiistory, ordering medications,tests, procedures, referring, communicating with other health pet care technician, indepentently interpreting results, counseling the patient and care coordination
[2024-10-29 17:20] LABS: Glucose 500 mg/dL (74-106)
[2024-10-29] MEDS: cefTRIAXone 1 GM/50 ML BAG IVPB (17:45)
[2024-10-29] MEDS: Hydrocortisone 10 MG TAB 15 MG PO (19:59)
[2024-10-29] MEDS: Magnesium Oxide 400 MG TAB PO (20:00)
[2024-10-29 20:05] LABS: BUN 9 mg/dL (7-18); CREATININE 1.4 mg/dL (0.55-1.02); Chloride 101 mmol/L (98-107); Estimated GFR 50.95 (mL/min/1.73m2); Glucose 428 mg/dL (74-106); Potassium 4.4 mmol/L (3.5-5.1); Sodium 132 mmol/L (136-145)
[2024-10-30] VITALS (45 sets, daily range): BP systolic 99–135; BP diastolic 55–88; PULSE 82–103; RESP 12–32; TEMP 36.6–37.3; O2SAT 97–100
[2024-10-30 00:01] LABS: BUN 6 mg/dL (7-18); CREATININE 1.1 mg/dL (0.55-1.02); Calcium 8.3 mg/dL (8.5-10.1); Chloride 107 mmol/L (98-107); Estimated GFR 68.04 (mL/min/1.73m2); Glucose 166 mg/dL (74-106); Potassium 3.6 mmol/L (3.5-5.1); Sodium 137 mmol/L (136-145)
[2024-10-30] MEDS: POTASSIUM CHLORIDE/D5-0.9%NACL 1,000 ML 150 MEQ IV (00:06)
[2024-10-30] MEDS: Levothyroxine 125 MCG TAB PO (05:37)
[2024-10-30] MEDS: Insulin Aspart 300 UNITS/3 ML PEN SC ×4 (05:47→10:57)
[2024-10-30 07:24] LABS: Iron 40 ug/dL (50-170); Total Iron Binding Capacity 201 ug/dL (250-450); Transferrin Sat 20 % (15-50)
[2024-10-30 07:54] LABS: Anion Gap 8.1 mmol/L (3-11); BUN 6 mg/dL (7-18); CO2 19.9 mmol/L (21.0-32.0); Calcium 8.3 mg/dL (8.5-10.1); Chloride 108 mmol/L (98-107); Estimated GFR 76.29 (mL/min/1.73m2); Glucose 288 mg/dL (74-106); Potassium 4.2 mmol/L (3.5-5.1); Sodium 136 mmol/L (136-145)
[2024-10-30] MEDS: Insulin Glargine 300 UNITS/3 ML PEN 25 UNITS SC (08:15)
[2024-10-30] MEDS: Hydrocortisone 10 MG TAB 5 MG PO (08:17)
[2024-10-30] MEDS: Phenazopyridine 100 MG TAB PO ×2 (08:17→19:56)
[2024-10-30] MEDS: Fludrocortisone 0.1 MG TAB 0.2 MG PO (08:18)
[2024-10-30] MEDS: Magnesium Oxide 400 MG TAB PO ×2 (08:18→19:55)
--- NOTE | 2024-10-30 09:29 | TELEFU_ITS ---
Date of service: 10/30/24 Time of Service: 09:29 Nutrition Note NOTE: Received nutritoin consult regarding diabetes education/mgt. I visited with patient on [facility] floor 10/28/24. Pt has since transitioned to ICU due to DKA developing. Insulin drip currently discontinued and patient on sen sitive sliding scale insulin aspart q3 hours for corrections and also insulin glargine at 25u daily. She is ordered for D50 prn to address glucose <70. Pt with fasting glucose at 288 this morning and 283 for capillary at 8:55 this morning. Please see previous note for 10/28 with recommendations for increase in glargine - can titrate up to help bring down fasting and between meal glucose. It is of utmost importance to cover patients po intake with insulin as well - pt uses a 1unit Lispro to 15 gram carb bolus at home for meals and this is needs to continue while inpatient to account for glucose post-meals. Time Spent in Nutritional Counseling and Treatment: 0
[2024-10-30] MEDS: Enoxaparin 40 MG/0.4 ML SYR SC (10:57)
--- NOTE | 2024-10-30 11:05 | CMPROGNOTE_ITS ---
Date of service: 10/30/24 Time of Service: 11:05 Care Management Progress Note Progress Note Text Progress Note Text: Kaeal was awake, lying in bed watching TV when CM met with her. Her BS is being closely monitored and she is clinically improving and off the insulin drip. Kaela reported to CM that she was transferred to the ICU after her BS spiked to >500. Kaela is used to managing her BS at home and feels more frequent FBS checks would be helpful because she is sensitive to her highs and lows. She is wearing her dexacom and states that she knew her BS was off much sooner than it was checked because she felt aweful. Kaela's HA1C was 11.4 when checked yesterday. Kaela denies difficulty obtaining her diabetic medication or supplies in recent months. Discharge Potential Discharge Needs: PCP F/U Appt Anticipated Barriers to Discharge: Medical Status Patient/Family Education Needs: Review discharge instructions, discuss Ask Me Three Transportation: Private vehicle Plan: Anticipate Kaela will return home once medically cleared. She will be driven home via private vehicle by a friend/family member. She will follow up with her PCP and discharge plan of care. CM will continue to follow. Social Determinants of Health Screening Social Determinants of Health last assessed: 10/30/24 Will the Patient Participate in the Screening?: Yes Do you worry about having a steady place to live?: no Problems where you live: no known problems In the past 12 months, have you had to go without electric, gas, oil or water in your home?: no Have you or anyone in your house had to go without enough food to eat?: no Has lack of transportation kept you from medical appointments or from doing things needed for daily living?: no Has anyone in your life made you feel unsafe or unsupported?: no How hard is it for you to pay for the very basics like food, housing, medical care, and heating? Would you say it is:: Not hard at all Do you want help finding or keeping work or a job?: I do not need or want help If for any reason you need help with day-to-day activities such as bathing, preparing meals, shopping, managing finances, etc., do you get the help you need?: I don?t need any help How often do you feel lonely or isolated from those around you?: Never Do you speak a language other than Russian at home?: No Does the patient want assistance with any of the above?: No
--- NOTE | 2024-10-30 15:39 | PGE_ITS ---
Date of Service Date of service: 10/30/24 Time of Service: 15:39 Assessment and Plan Assessment and plan (1) Hyperglycemia: Status: Acute Assessment and plan: PT did have elevated bg as well as anion gap elevation which responded to IVF and insulin. The pt is on steroids which will cause an elevation in blood glucose 1.2.25 Most recent BG have shown improvement. Will deescalate checks to qac/hs. Pt is on sliding scale/long acting. (2) Hypomagnesemia: Status: Acute Assessment and plan: will replace 1.2.25 mg is still low but improved, will cw oral replacement (3) UTI (urinary tract infection): Status: Acute Assessment and plan: Urine Culture Final 10/29/24-1120 Day 1 Result ISOLATES BELOW ISOLATE 1 COLONY COUNT >100,000 COLONIES/ML ISOLATE 1 APPEARANCE Gram Positive Lizzy ISOLATE 1 ACTION IDENTIFICATION TO FOLLOW ISOLATE 2 COLONY COUNT <10,000 COLONIES/ML ISOLATE 2 APPEARANCE Mixed Gram Positive Lizzy Day 2 Result ISOLATES BELOW ISOLATE 1 COLONY COUNT >100,000 COLONIES/ML ISOLATE 1 APPEARANCE Gram Positive Lizzy ISOLATE 1 ACTION IDENTIFICATION TO FOLLOW ISOLATE 2 COLONY COUNT 10,000 - 50,000 COLONIES/ML ISOLATE 2 APPEARANCE Mixed Gram Positive Lizzy Organism 1 Strep pyogenes (Group A) COLONY COUNT >100,000 COLONIES/ML Organism 2 Gram positive lizzy, mixed COLONY COUNT 10,000 - 50,000 COLONIES/ML Awaiting culture and sensitivity results. Currently on rocephin 1.2.25 sensitivities not availabe as of 1600 1.2.25, will continue with rocephin and deescalate as needed (4) Hyperkalemia: Status: Acute Assessment and plan: resolved (5) Low mean corpuscular volume (MCV): Status: Acute Assessment and plan: will check a Fe/TIBC level. Most likely the pt has iron deficiency anemia 1.2.25 Pt does have low iron with a value at 40. Will start oral replacement (6) Diabetes: Status: Chronic Assessment and plan: as above Subjective Subjective Interval history since last seen: Pt seen and examined this am. Pt states that she is feeling better. POC d/w pt as well as with bed side nurse at ICU huddle Exam Narrative Exam Narrative: Head eyes ears nose and throat: Normocephalic atraumatic mucous membranes moist extract motions are intact pupils are equal round reactive to light Neck: No lymphadenopathy no JVD no thyromegaly Cardiovascular: Tachycardic but no murmur rubs gallops Lungs: Clear to auscultation bilaterally no accessory muscle use noted Abdomen: Bowel sounds are active her midepigastric pain has resolved Extremities: No sinus clubbing or edema Neurologic: Cranial nerves II through XII intact as tested reflexes in upper lower extremity normal as tested Psych: Alert and oriented x 3 affect is appropriate is able to give a linear history Objective Last Vital Signs Temp 37.3 C 10/30/24 15:00 Pulse 88 10/30/24 15:01 Resp 25 H 10/30/24 15:01 BP 119/81 10/30/24 15:01 Pulse Ox 99 10/30/24 15:12 Laboratory Results - last 24 hr 10/27/24 10/29/24 10/29/24 16:06 17:02 19:45 Sodium 132 L Potassium 4.4 Chloride 101 Carbon Dioxide 11.0 L Anion Gap 20.0 H BUN 9 Creatinine 1.4 H Est GFR (CKD-EPI 2020) 50.95 Glucose 500 H 428 H Calcium 8.0 L Iron TIBC Transferrin % Sat Cortisol 7.0 10/29/24 10/30/24 23:45 05:44 Sodium 137 136 Potassium 3.6 4.2 Chloride 107 108 H Carbon Dioxide 21.0 19.9 L Anion Gap 9.0 8.1 BUN 6 L 6 L Creatinine 1.1 H 1.0 Est GFR (CKD-EPI 2020) 68.04 76.29 Glucose 166 H 288 H Calcium 8.3 L 8.3 L Iron 40 L TIBC 201 L Transferrin % Sat 20 Cortisol PAWSS Have you Been Recently Intoxicated or Drunk Within the Last 30 days?: No Have you Ever Experienced Previous Episodes of Alcohol Withdrawal?: No Have you ever Experienced Withdrawal Seizures?: No Have you ever Experienced Delirium Tremens(DT)s?: No Have you ever undergone Alcohol Rehabilitation Treatment (i.e, inpt ot outpatient treatment programs)?: No Have you ever Experienced Blackouts?: No Have you ever Combined Alcohol with other Downers within the last 90 days?: No Have you ever Combined Alcohol with any other Substance of Abuse during the last 90 days?: No Positive Blood Alcohol level on Presentation? [PCS.BAL]: No Evidence of Increased Autonomic Activity (i.e. HR>120, tremor, sweating, agitation, nausea)?: No Result: 0 Time Spent with Patient Time Spent with Patient: 35-49 minutes Time was spent: preparing to see the patient(eg.review tests), obtaining and/or reviewing separately otained hiistory, ordering medications,tests, procedures, referring, communicating with other health director day care center, indepentently interpreting results, counseling the patient and care coordination
[2024-10-30] MEDS: Hydrocortisone 10 MG TAB 15 MG PO (19:56)
[2024-10-30] MEDS: cefTRIAXone 1 GM/50 ML BAG IVPB (19:57)
[2024-10-31] MEDS: Insulin Aspart 300 UNITS/3 ML PEN SC ×4 (03:00→11:41)
[2024-10-31] MEDS: Levothyroxine 125 MCG TAB PO (05:18)
[2024-10-31 07:38] VITALS: BP 126/79; PULSE 71; RESP 16; TEMP 36.6; O2SAT 99
--- NOTE | 2024-10-31 08:53 | CMPROGNOTE_ITS ---
Date of service: 10/31/24 Time of Service: 08:53 Care Management Progress Note Progress Note Text Progress Note Text: Kaela was sitting up in bed when CM met with her. She is feeling so much better today and is looking forward to discharging home. No discharge needs, CM provided information on community resources should they be needed after discharge. Discharge Potential Discharge Needs: PCP F/U Appt Anticipated Barriers to Discharge: Medical Status Patient/Family Education Needs: Review discharge instructions, discuss Ask Me Three Transportation: Private vehicle Plan: Anticipate Kaela will return home once medically cleared. She will be driven home via private vehicle by a friend/family member. She will follow up with her PCP and Endo and discharge plan of care. CM will continue to follow. Social Determinants of Health Screening Social Determinants of Health last assessed: 10/31/24 Will the Patient Participate in the Screening?: Yes Do you worry about having a steady place to live?: no Problems where you live: no known problems In the past 12 months, have you had to go without electric, gas, oil or water in your home?: no Have you or anyone in your house had to go without enough food to eat?: no Has lack of transportation kept you from medical appointments or from doing things needed for daily living?: no Has anyone in your life made you feel unsafe or unsupported?: no How hard is it for you to pay for the very basics like food, housing, medical care, and heating? Would you say it is:: Not hard at all Do you want help finding or keeping work or a job?: I do not need or want help If for any reason you need help with day-to-day activities such as bathing, preparing meals, shopping, managing finances, etc., do you get the help you need?: I don?t need any help How often do you feel lonely or isolated from those around you?: Never Do you speak a language other than Green[place]ic at home?: No Does the patient want assistance with any of the above?: No
[2024-10-31] MEDS: FLUoxetine 20 MG CAP 40 MG PO (09:06)
[2024-10-31] MEDS: Fludrocortisone 0.1 MG TAB 0.2 MG PO (09:06)
[2024-10-31] MEDS: Hydrocortisone 10 MG TAB 5 MG PO (09:07)
[2024-10-31] MEDS: Enoxaparin 40 MG/0.4 ML SYR SC (09:07)
[2024-10-31] MEDS: Phenazopyridine 100 MG TAB PO (09:07)
[2024-10-31] MEDS: Magnesium Oxide 400 MG TAB PO (09:07)
[2024-10-31] MEDS: Insulin Glargine 300 UNITS/3 ML PEN 25 UNITS SC (09:09)
--- NOTE | 2024-10-31 10:53 | CMDISCH_ITS ---
Date of service: 10/31/24 Time of Service: 10:53 LACE Index Scoring Tool Questions: Length of Stay (in days): 4 - 6 Was the patient admitted via the E.D.?: Yes Comorbidities: Diabetes w/o Complication (Diabetes with complications) Care Management Discharge Plan Reason for Hospitalization: UTI, adrenal insufficiency Discharge Plan: Discharge home via private vehicle with family. Follow up with community providers (PCP, Endocrine) and discharge plan of care as directed. No new services are indicated at the time of discharge. No barriers identified in obtaining diabetic medication or supplies. Patient/Family Education Needs: Review discharge instructions, limitations, medications and plan for outpatient follow up. Discuss ask me three. SDOH Health Related Social Needs: Health related social needs housing instability, house d, with risk of homelessness (Z59.811)
--- NOTE | 2024-10-31 11:10 | DSE_ITS ---
Date of service: 10/31/24 Time of Service: 11:10 DS: Diagnosis Discharge Diagnosis (1) Hyperglycemia: Status: Acute (2) Hypomagnesemia: Status: Acute (3) UTI (urinary tract infection): Status: Acute (4) Hyperkalemia: Status: Acute (5) Low mean corpuscular volume (MCV): Status: Acute (6) Diabetes: Status: Chronic Discharge Plan Disposition Patient Disposition: Home Condition: Good Discharge Details Reason For Visit: UTI, adrenal insufficiency Admit Date/Time: 10/27/24 20:45 Admit Provider: Michael Landry Attending Provider: Michael Landry Primary Care Provider: Unknown,Unknown Hospital Course Hospital Course: This is a 34-year-old female who has a diagnosis of diabetes type 1 as well as adrenal insufficiency who presented with signs and symptoms consistent with a UTI on 10/27/2024 was admitted to the hospital service for further evaluation and treatment. Workup including a urine culture was done which showed group A strep with over 100,000 CFU's. Per my discussion with lab they do not do cultures on group A strep as it is essentially pansensitive. Recommendation is to treat with amoxicillin so I will send her home with prescription for this for another 4 or 5 days. While she was here an A1c was drawn and showed to have a value of 11.4 indicating undertreatment or noncompliance. Patient will need to have her diabetic regimen optimized in the outpatient setting. While she was here she also got a CT of her abdomen and pelvis which was essentially benign on 31 October patient stated she felt much better wanted to be discharged home to which we agreed. She will be discharged home on her previous medications as well as addition of antibiotics. While the patient was here she was also diagnosed with iron deficiency anemia and will be started on iron supplementation. Home Meds and New Rx's Prescriptions: New amoxicillin 500 mg capsule 500 mg PO BID Qty: 14 0RF iron 159 mg (45 mg iron) tablet extended release 159 mg PO BID Qty: 60 0RF Continued insulin lispro 100 unit/mL insulin pen 1 sliding scale dose subcut USEASDIRECTD insulin degludec [Tresiba FlexTouch U-100] 100 unit/mL (3 mL) insulin pen 40 unit subcut DAILY fluoxetine [Prozac] 40 mg capsule 40 mg PO DAILY levothyroxine [Synthroid] 125 mcg tablet 125 mcg PO DAILY hydrocortisone 10 mg tablet 15 mg PO .am hydrocortisone 5 mg tablet 5 mg PO .pm fludrocortisone 0.1 mg tablet 0.1 mg PO DAILY Discharge Instructions Referrals: Unknown,Unknown [Primary Care Provider] - (follow up with PCP in 3-5 days) Activity:: Activity as Tolerated Equipment/Supplies:: No Equipment Needed Diet:: As Tolerated Discharge Orders Discharge Orders: Discharge Order (Routine); Ordered 10/31/24 Ordered By: Kedar Sung DS: Summary Time Spent with Patient providing and/or coordinating discharge services: Greater than 30 minutes Status at Discharge Functional status at discharge: independent ambulation Overall status at discharge: patient is back to baseline Mental Status: mental status grossly normal Speech and Movement: speech and movement normal Mood: congruent mood Affect: normal affect Quality:SDOH Health Related Social Needs: Health related social needs housing instability, house d, with risk of homelessness (Z59.811) Exam Narrative Exam Narrative: Head eyes ears nose and throat: Normocephalic atraumatic mucous membranes moist extract motions are intact pupils are equal round reactive to light Neck: No lymphadenopathy no JVD no thyromegaly Cardiovascular: Tachycardic but no murmur rubs gallops Lungs: Clear to auscultation bilaterally no accessory muscle use noted Abdomen: Bowel sounds are active her midepigastric pain has resolved Extremities: No sinus clubbing or edema Neurologic: Cranial nerves II through XII intact as tested reflexes in upper lower extremity normal as tested Psych: Alert and oriented x 3 affect is appropriate is able to give a linear history Psych Mental Status: mental status grossly normal Speech and Movement: speech and movement normal Mood: congruent mood Affect: normal affect DS: Data Vitals/I&O Vitals and I&O: Vital Signs Temperature 36.6 C 10/31/24 07:38 Temperature Source Tympanic 10/31/24 07:38 Pulse 71 10/31/24 07:38 Pulse Rhythm Regular 10/27/24 22:29 Pulse 90 10/30/24 20:01 Respiratory Rate 16 10/31/24 07:38 Respiratory Effort Normal, Non-Labored 10/27/24 22:29 Respiratory Depth Normal 10/27/24 22:29 Respiratory Pattern Normal 10/27/24 22:29 Blood Pressure 126/79 10/31/24 07:38 Blood Pressure Mean 99 01/02/25 20:01 Blood Pressure Position Supine 10/27/24 15:33 Pulse Oximetry 99 10/31/24 07:38 Oxygen Delivery Method Room Air 10/31/24 07:38 Oxygen Flow Rate 0 10/31/24 07:38 Pain Level 0 10/31/24 07:38 Comment see saved vitals from monitor. 10/30/24 08:00 Intake & Output 10/30/24 10/30/24 10/31/24 11:59 23:59 11:59 Intake Total 3032.517 / 3522.517 490 / 3522.517 360 / 360 Output Total 1451999 550 / 2000 Balance 1582.517 / 1522.517 -60 / 1522.517 360 / 360 Weight 70.1 kg Intake: IV 2071.517 / 2081. Oral 960 / 1440 480 / 1440 360 / 360 Output: Urine 1449 / 1999 Other: Urine Color Dark [employer] Yellow Urine Appearance Clear Clear Urine Odor Normal Normal Comment pt voids in toilet independently pt voided x1 Stool Size Small Stool Characteristics Soft Brown PFSH All Active Problems (Updated 10/29/24 @ 11:51 by Kedar Sung MD) Diabetes (Chronic) Low mean corpuscular volume (MCV) (Acute) Hyperkalemia (Acute) Sepsis (Acute) UTI (urinary tract infection) (Acute) Hypomagnesemia (Acute) Hyperglycemia (Acute) Emphysematous cystitis (Acute) Social History Smoking/Tobacco Use Status: Never Smoking risk assessment performed?: Yes Alcohol Intake: never Drug use: Never Housing: house Time Spent with Patient Time Spent with Patient: 45-69 minutes Time was spent: preparing to see the patient(eg.review tests), obtaining and/or reviewing separately otained hiistory, ordering medications,tests, procedures, referring, communicating with other health emergency care attendant, indepentently interpreting results, counseling the patient and care coordination
== END 2024-10-31 12:25 | disposition home or self-care (01) | DRG 689 ==
LOC: ER 20:11 → MS 22:28 → ICU 10-29 01:30 → MS 10-30 23:19
PROVIDERS: Family Medicine; Hospitalist; Admitting Provider General Practice; Emergency Provider Physician Assistant; Visit Provider General Practice
DX: N30.80 Other cystitis without hematuria (principal); E10.10 Type 1 diabetes mellitus with ketoacidosis without coma; E27.1 Primary adrenocortical insufficiency; E83.42 Hypomagnesemia; E87.5 Hyperkalemia; D50.9 Iron deficiency anemia, unspecified; B95.0 Streptococcus, group A, as the cause of diseases classified elsewhere; T38.0X5A Adverse effect of glucocorticoids and synthetic analogues, initial encounter
CPT/HCPCS: 00123; 36415; 36416; 80048; 80053; 82533; 82805; 82947; 82962; 83690; 87077; 93005; 96365; 96367; 96375; 99285; J1650; 71046; 74177; 81003; 81015; 83036; 83540; 83550; 83605; 83735; 84100; 85025; 87086; 93010; 99223; 99232; 99233; 99239; J0696; J0780; J1200; J1720; J1815; J2405; J2765; J3475; J3490

== ENCOUNTER 2025-04-09 08:46 | Emergency (ER) | payer OTHER, SELFPAY ==
[2025-04-09 08:47] VITALS: BP 127/78; PULSE 90; RESP 15; TEMP 35.8; O2SAT 100
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
[2025-04-09] MEDS: Ibuprofen 600 MG TAB PO (09:08)
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
--- NOTE | 2025-04-09 09:51 | DI.RAD_ITS ---
Exam(s) XR HAND RT COMPLETE EXAM: XR HAND RT COMPLETE CLINICAL HISTORY: pain. TECHNIQUE: 2D digital imaging was performed. COMPARISON: No exams were available for comparison FINDINGS: 3 views No evidence of fracture or dislocation. Bone density normal. No osseous lesions nor erosions. Tiny densities noted lateral to the head of the 2nd metacarpal. IMPRESSION: Above. DATA REPOSITORY: RADIATION DOSE DELIVERED:
--- NOTE | 2025-04-09 09:51 | DI.RAD_ITS ---
Exam(s) XR HAND LT COMPLETE EXAM: XR HAND LT COMPLETE CLINICAL HISTORY: pain. TECHNIQUE: 2D digital imaging was performed. COMPARISON: CR XR HAND RT COMPLETE from 04/09/2025 FINDINGS: 3 views No evidence of fracture or dislocation nor abnormal soft tissue calcifications. No osseous lesions. Bone density normal. No radiopaque foreign bodies evident. IMPRESSION: No significant osseous findings in the left hand. DATA REPOSITORY: RADIATION DOSE DELIVERED:
[2025-04-09 10:15] VITALS: BP 99/54; PULSE 83; RESP 18; O2SAT 100
[2025-04-09] MEDS: Acetaminophen 500 MG TAB 1000 MG PO (10:26)
[2025-04-09 10:34] VITALS: BP 99/54; PULSE 83; RESP 18; O2SAT 100
== END 2025-04-09 10:36 | disposition home or self-care (01) ==
PROVIDERS: Emergency Provider Emergency Medicine
DX: M79.642 Pain in left hand (principal); M79.641 Pain in right hand; M54.6 Pain in thoracic spine; E11.9 Type 2 diabetes mellitus without complications; E03.9 Hypothyroidism, unspecified; Z79.4 Long term (current) use of insulin
CPT/HCPCS: 81025; 99284; 72072; 73130